=== PATIENT | female | born 2000 | race Caucasian/White ===

== ENCOUNTER 2020-08-20 07:53 | Outpatient (CLI) | payer BC, SELFPAY ==
--- NOTE | ~2020-08-20 | US_ITS ---
EXAMINATION: US pelvic complete w TV EXAM DATE: 08/20/2020 08:37 INDICATION: Low abdominal pain. Ovarian cyst. TECHNIQUE: Pelvic transabdominal and transvaginal sonogram was performed. There are multiple graysca le and Doppler images available for interpretation. There is no prior study for comparison. FINDINGS: Uterus measures 6.8 x 3.8 x 4.7 cm, and is morphologically normal. Endometrial stripe edel sures 8 mm, within normal limits. There is a nabothian cyst. There is no free pelvic fluid. Right adnexa: The ovary measures 2.9 x 2.3 x 1.8 cm and is morphologically normal. Ovarian vascular f low confirmed. Left adnexa: The ovary measures 3.1 x 2.1 x 2.5 cm and is morphologically normal. Ovarian vascular fl ow confirmed. IMPRESSION: 1. Unremarkable pelvic ultrasound exam. Reviewed, dictated and finalized at location A. PSYCHOTHERAPIST
== END 2020-08-20 07:54 | disposition home or self-care (01) ==
PROVIDERS: PCP Pediatrics; Visit Provider Pediatrics
DX: R10.2 Pelvic and perineal pain (principal)
CPT/HCPCS: 76830; 76856

== ENCOUNTER 2021-11-08 13:04 | Emergency (ER) | payer BC, SELFPAY ==
[2021-11-08 13:08] VITALS: BP 131/80; PULSE 83; RESP 16; TEMP 36.8; O2SAT 100
--- NOTE | 2021-11-08 13:26 | ED.HA ---
HPI - Headache General Chief Complaint: Headache Stated Complaint: migraine Time Seen by Provider: 11/08/21 13:15 Source: patient and RN notes reviewed History of Present Illness HPI Narrative: Patient is a 20-year-old female who presents the urgent care with complaints of a migraine to the left sikhism/forehead. Patient is also sensitive to light and sound and has been nauseated. Patient states the headache started yesterday and she has been using ibuprofen and Excedrin without much relief. Patient states that she typically does have Fioricet on hand but ran out last week. Patient denies of any vomiting. Denies of any recent head trauma, injury or fall. Denies any dizziness. No other acute complaints. No acute distress noted. Patient aware of the plan of care. Some parts of this dictation were generated by voice recognition software and may contain typographical and/or grammatical inaccuracies. Related Data Home Medications Medication Instructions Recorded Confirmed fluoxetine 40 mg PO BID 11/08/21 11/08/21 hydroxyzine HCl 10 mg PO TID PRN 11/08/21 11/08/21 omeprazole 40 mg PO DAILY 11/08/21 11/08/21 Allergies Allergy/AdvReac Type Severity Reaction Status Date / Time No Known Allergies Allergy Verified 11/08/21 13:26 Review of Systems Review of Systems: CONSTITUTIONAL: Denies fever, chills, or sweats. EYES: Denies visual changes, redness, or discharge. ENT: Denies rhinorrhea, congestion, sore throat, or otalgia. CARDIOVASCULAR: Denies chest pain, palpitations, or edema. RESPIRATORY: Denies cough or dyspnea. GASTROINTESTINAL: Denies abdominal pain, nausea, vomiting, or diarrhea. GENITOURINARY: Denies dysuria or hematuria. SKIN: Denies rash or itching. MUSCULOSKELETAL: Denies back pain, joint pain, or myalgia. NEUROLOGIC: Reports of a migraine headache All other systems reviewed are negative, except as documented in HPI. PMFSH Comments At the time of my signature, I reviewed and agree with the nursing past medical, surgical, social, and family history. There is no relevant family history pertinent to the patient complaint. Exam Narrative: GENERAL: This is a well-nourished, well-developed patient, in no apparent distress. HEAD: normocephalic, atraumatic. EYES: PERRL. Sclera clear/white. Vision is grossly intact. EARS: External ears normal NOSE: External nose normal with no obvious nasal discharge, nares without redness, no rhinorrhea. THROAT: Mucous membranes moist NECK: Neck supple, non-tender without lymphadenopathy CARDIOVASCULAR: Regular rate and rhythm without murmurs, gallops, or rubs. RESPIRATORY: Clear to auscultation. Breath sounds equal bilaterally. No wheezes, rales, or rhonchi. SKIN: warm, intact with no suspicious lesions or rash, good texture and turgor. NEURO: awake, alert, and oriented to person, place and time. There were no obvious focal neurologic abnormalities. EXTREMITIES: No clubbing, cyanosis, or edema. Course Course Level of Care: Express Care Visit Vital Signs Vital signs: Vital Signs Temperature 98.3 F 11/08/21 13:08 Pulse Rate 83 11/08/21 13:08 Respiratory Rate 16 11/08/21 13:08 Blood Pressure 131/80 11/08/21 13:08 Pulse Oximetry 100 11/08/21 13:08 Temperature 98.3 F 11/08/21 13:08 Pulse Rate 83 11/08/21 13:08 Respiratory Rate 16 11/08/21 13:08 Blood Pressure 131/80 11/08/21 13:08 Pulse Oximetry 100 11/08/21 13:08 Reviewed MDM - Headache MDM Narrative Medical decision making narrative: Advised the patient to use the Fioricet as directed. Continue your hydroxyzine and Tylenol/ibuprofen intermittently as needed. Do not take all the medications together. Increase your water intake and rest. Use the Zofran as needed for nausea. If you develop any increase with severe headache, lightheadedness, dizziness or profuse vomiting?go to the emergency room. Follow-up with your PCP within 2 to 5 days or for worsening symptoms or failure to improv
== END 2021-11-08 13:35 | disposition home or self-care (01) ==
PROVIDERS: Emergency Provider Nurse Practitioner Family
DX: G43.909 Migraine, unspecified, not intractable, without status migrainosus (principal); K21.9 Gastro-esophageal reflux disease without esophagitis; F41.9 Anxiety disorder, unspecified
CPT/HCPCS: 99213; G0463

== ENCOUNTER 2022-03-29 12:50 | Emergency (ER) | payer BC, SELFPAY ==
[2022-03-29 12:54] VITALS: BP 127/73; PULSE 95; RESP 20; TEMP 36.8; O2SAT 100
--- NOTE | 2022-03-29 13:27 | ED.GENADULT ---
HPI - General Adult General Chief complaint: Upper Respiratory Infection Stated complaint: nausea sore throat cough Source: patient Mode of arrival: ambulatory Limitations: no limitations History of Present Illness HPI narrative: Patient presents for evaluation of sick symptoms for the last 2 weeks. Symptoms include sinus congestion, nonproductive cough, shortness of breath, nausea, vomiting, diarrhea, sore throat, bilateral otalgia. No fever, chills, chest pain. No recent sick contacts to her knowledge. She took a home COVID test which was negative. She states she has had COVID 3 times in the past. She is not taking any medications to assist with her symptoms. No additional complaints or concerns. Related Data Home Medications Medication Instructions Recorded Confirmed fluoxetine 40 mg capsule 40 mg PO BID 11/08/21 03/29/22 omeprazole 40 mg capsule,delayed 40 mg PO DAILY 11/08/21 11/08/21 release albuterol sulfate 90 mcg/actuation 2 puff inhalation Q4-6H PRN 03/29/22 03/29/22 aerosol inhaler Shortness Of Breath Or Wheezing budesonide-formoterol HFA 80 1 inh inhalation DAILY 03/29/22 03/29/22 mcg-4.5 mcg/actuation aerosol inhaler (Symbicort) fluticasone propionate 50 1 ea intranasal DAILY 03/29/22 03/29/22 mcg/actuation nasal spray,suspension hydroxyzine HCl 25 mg tablet 1 tablet PO DAILY 03/29/22 03/29/22 sumatriptan succinate 25 mg tablet 1 tablet PO DAILY PRN Migraine 03/29/22 03/29/22 Headache topiramate 25 mg tablet 1 tablet PO BID 03/29/22 03/29/22 Allergies Allergy/AdvReac Type Severity Reaction Status Date / Time No Known Allergies Allergy Verified 03/29/22 13:22 Review of Systems Review of Systems: CONSTITUTIONAL: Denies fever, chills, or sweats. EYES: Denies visual changes, redness, or discharge. ENT: Reports sinus congestion, sore throat, bilateral ear pain. CARDIOVASCULAR: Denies chest pain, palpitations, or edema. RESPIRATORY: Reports cough and SOB GASTROINTESTINAL:Reports nausea, vomiting and diarrhea. Denies abdominal pain GENITOURINARY: Denies dysuria or hematuria. SKIN: Denies rash or itching. MUSCULOSKELETAL: Denies back pain, joint pain, or myalgia. NEUROLOGIC: Denies headache, numbness, dizziness, or weakness. PSYCHIATRIC: Denies anxiety or depression. 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 HEAD: Normocephalic, atraumatic. EYES: PERRLA and EOMI. ENT: Nares clear, no rhinorrhea or epistaxis. Mucous membranes moist. Oropharynx without tonsillar hypertrophy exudate or other lesions. Bilateral TMs pearly ko nonbulging NECK: Supple. No adenopathy or masses. No carotid bruits or JVD CHEST: Clear to auscultation. No respiratory distress. No wheezes rales or rhonchi HEART: Regular rate and rhythm. No murmur heard. Normal peripheral pulses. ABDOMEN: Soft, nontender, nondistended, normal active bowel sounds. EXTREMITIES: Normal range of motion. No edema. SKIN: Warm, dry, no rash. NEURO: No focal deficits. Alert and oriented x3. PSYCH: Normal mood and affect. Course Course Emergency Course: This is a 21-year-old female that presented with complaints of sick symptoms. She recently took a COVID test at home which was negative. Infl
== END 2022-03-29 13:35 | disposition home or self-care (01) ==
PROVIDERS: Emergency Provider Nurse Practitioner
DX: B34.9 Viral infection, unspecified (principal)
CPT/HCPCS: 87804; 99213; G0463

== ENCOUNTER 2022-04-05 13:10 | Emergency (ER) | payer BC, SELFPAY ==
[2022-04-05 13:16] VITALS: BP 157/138; PULSE 86; RESP 16; TEMP 36.2; O2SAT 100
[2022-04-05 13:35] VITALS: BP 129/74; PULSE 86; RESP 18; TEMP 36.4; O2SAT 100
--- NOTE | 2022-04-05 13:48 | ECG_ITS ---
Measurements Intervals Christopher Rate: 69 P: 40 PA: 129 QRS: 51 QRSD: 86 T: 23 QT: 403 QTc: 434 Interpretive Statements SINUS RHYTHM INCOMPLETE RIGHT BUNDLE BRANCH BLOCK BORDERLINE ST-T WAVE ABNORMALITY- ANT/INF LEADS BORDERLINE ECG Electronically Signed On 04-05-2022 18:21:36 CDT by Abdiel Duque D.O.
[2022-04-05 14:04] LABS: Basophils Absolute Auto 0.1 K/mm3 (0.0-0.1); Basophils Percent Auto 1.1 % (0.2-1.2); Eosinophils Absolute Auto 0.1 K/mm3 (0-0.3); Eosinophils Percent Auto 0.9 % (0-4.4); Hematocrit 32.8 % (37.0-47.0); Hemoglobin 9.8 g/dL (12.0-15.0); Immature Granulocyte Absolute 0.01 K/mm3 (0.00-0.031); Immature Granulocyte Percent A 0.2 % (0-0.5); Lymphocytes Absolute Auto 2.46 K/mm3 (0.9-3.2); Lymphocytes Percent Auto 38.2 % (18.3-44.2); Mean Corpuscular HGB Conc 29.9 g/dl (32-36); Mean Corpuscular Hemoglobin 21.7 pg (26-34); Mean Corpuscular Volume 72.7 fl (80-100); Mean Platelet Volume 9.9 fl (7.4-10.4); Monocytes Absolute Auto 0.4 K/mm3 (0.1-0.6); Monocytes Percent Auto 6.7 % (2.6-8.5); Neutrophils Absolute Auto 3.4 K/mm3 (1.3-6.7); Neutrophils Percent Auto 52.9 % (45.5-73.1); Platelet Count Result 316 k/mm3 (150-375); Red Blood Count 4.51 M/mm3 (4.2-5.4); White Blood Count 6.4 K/mm3 (4.5-10.0)
--- NOTE | 2022-04-05 14:16 | ED.SYNCOPE ---
HPI - Syncope General Chief Complaint: Syncope Stated Complaint: passed out Time Seen by Provider: 04/05/22 13:48 Source: patient History of Present Illness HPI narrative: Patient presents with syncope. Patient ports longstanding history of migraine dizziness both lightheadedness and vertigo as well as syncope. Reports has been having symptoms for years she has seen her primary care doctor as well as labs Seeing neurology she is currently being evaluated for seizures POTS and lupus. Reports today's events were similar to her priors. 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 For she has recently had a sinus infection and started her menses which thinks may be contributing exacerbation of her syncopal episodes. She denies any recent fevers, cough, chest pain, nausea, vomiting. She reports a mild headache consistent with her prior migraines Related Data Home Medications Medication Instructions Recorded Confirmed fluoxetine 40 mg capsule 40 mg PO BID 11/08/21 03/29/22 omeprazole 40 mg capsule,delayed 40 mg PO DAILY 11/08/21 03/29/22 release albuterol sulfate 90 mcg/actuation 2 puff inhalation Q4-6H PRN 03/29/22 03/29/22 aerosol inhaler Shortness Of Breath Or Wheezing budesonide-formoterol HFA 80 1 inh inhalation DAILY 03/29/22 03/29/22 mcg-4.5 mcg/actuation aerosol inhaler (Symbicort) fluticasone propionate 50 1 ea intranasal DAILY 03/29/22 03/29/22 mcg/actuation nasal spray,suspension hydroxyzine HCl 25 mg tablet 1 tablet PO DAILY 03/29/22 03/29/22 sumatriptan succinate 25 mg tablet 1 tablet PO DAILY PRN Migraine 03/29/22 03/29/22 Headache topiramate 25 mg tablet 1 tablet PO BID 03/29/22 03/29/22 Allergies Allergy/AdvReac Type Severity Reaction Status Date / Time No Known Allergies Allergy Verified 03/29/22 13:22 Review of Systems Review of Systems: CONSTITUTIONAL: Denies fever, chills, or sweats. EYES: Denies visual changes, redness, or discharge. ENT: Denies rhinorrhea, congestion, sore throat, or otalgia. CARDIOVASCULAR: Denies chest pain, palpitations, or edema. RESPIRATORY: Denies cough or dyspnea. GASTROINTESTINAL: Denies abdominal pain, nausea, vomiting, or diarrhea. GENITOURINARY: Denies dysuria or hematuria. SKIN: Denies rash or itching. MUSCULOSKELETAL: Denies back pain, joint pain, or myalgia. NEUROLOGIC: Denies headache, numbness, or weakness. PSYCHIATRIC: Denies anxiety or depression. 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 HEAD: Normocephalic, atraumatic. EYES: PERRLA and EOMI. ENT: Nares clear, no rhinorrhea or epistaxis. Mucous membranes moist. NECK: Supple. No masses. No JVD CHEST: Clear to auscultation. No respiratory distress. No wheezes rales or rhonchi HEART: Regular rate and rhythm. No murmur heard. Normal peripheral pulses. ABDOMEN: Soft, nontender, nondistended, normal active bowel sounds. EXTREMITIES: Normal range of motion. No edema. SKIN: Warm, dry, no rash. NEURO: No focal def
[2022-04-05 14:21] LABS: Alanine Aminotransferase 15 U/L (6-35); Alkaline Phosphatase 49 U/L (38-126); Anion Gap 7 mmol/L (8-16); Aspartate Amino Transferase 23 U/L (14-36); Bilirubin,Total 0.1 mg/dL (0.2-1.3); Blood Urea Nitrogen 16 mg/dL (7-17); Calcium 8.4 mg/dL (8.4-10.2); Carbon Dioxide 23 mmol/L (22-30); Chloride 108 mmol/L (98-107); Estimated CRCL calculation 105 ml/min; Estimated Glomerular Filt Rate > 60; Glucose 90 mg/dL (65-110); Potassium 3.8 mmol/L (3.4-5.0); Sodium 138 mmol/L (137-145)
[2022-04-05] MEDS: SODIUM CHLORIDE 0.9% IV 1,000 ML 999 ML IV CONT (14:29)
[2022-04-05] MEDS: KETOROLAC 15 MG/ML VIAL (*BKC) IV PUSH (14:29)
== END 2022-04-05 15:17 | disposition home or self-care (01) ==
PROVIDERS: Emergency Provider Emergency Medicine
DX: R55 Syncope and collapse (principal); I45.10 Unspecified right bundle-branch block; R94.31 Abnormal electrocardiogram [ECG] [EKG]
CPT/HCPCS: 36415; 80053; 85025; 93005; 96361; 96374; 99284; J1885; J7030

== ENCOUNTER 2022-05-17 11:32 | Emergency (ER) | payer BC, SELFPAY ==
[2022-05-17 11:36] VITALS: BP 133/88; PULSE 79; RESP 16; TEMP 36.1; O2SAT 100
[2022-05-17 11:49] VITALS: BP 131/68; PULSE 76; RESP 16; O2SAT 100
--- NOTE | 2022-05-17 12:06 | ED.HA ---
HPI - Headache General Chief Complaint: Headache <Arabella Bo PA-C - Last Filed: 05/17/22 18:21> Stated Complaint: Headache, aura, can't move left arm <Arabella Bo PA-C - Last Filed: 05/17/22 18:21> Time Seen by Provider: 05/17/22 11:42 <FRAN Mendosa Last Filed: 05/17/22 18:21> History of Present Illness HPI Narrative: Patient is a 21-year-old female with a history of migraine headaches that have been worked up in the past with images, MRI, here for evaluation of her typical migraine headache. 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 Notes right-sided pain, pulsatile in nature, associated with nausea, photophobia and phonophobia. No current visual changes, dizziness or lightheadedness, vomiting. Patient did not want to be evaluated in ED but she was told by her coworkers that she should come down to be evaluated because she felt weak on the left side. Patient notes this is a chronic symptom of her migraines. She is on daily topiramate for prophylaxis but notes that she has had daily headaches despite compliance. Has had MRI and CT scans of her brain that have been normal, but she has not yet gotten in to see a neurologist yet. Has appointment in Oct with neurologist at [place]. <Arabella Bo PA-C - Last Filed: 05/17/22 18:21> Related Data Home Medications: Home Medications Medication Instructions Recorded Confirmed fluoxetine 40 mg capsule 40 mg PO BID 11/08/21 03/29/22 omeprazole 40 mg capsule,delayed 40 mg PO DAILY 11/08/21 03/29/22 release albuterol sulfate 90 mcg/actuation 2 puff inhalation Q4-6H PRN 03/29/22 03/29/22 aerosol inhaler Shortness Of Breath Or Wheezing budesonide-formoterol HFA 80 1 inh inhalation DAILY 03/29/22 03/29/22 mcg-4.5 mcg/actuation aerosol inhaler (Symbicort) fluticasone propionate 50 1 ea intranasal DAILY 03/29/22 03/29/22 mcg/actuation nasal spray,suspension hydroxyzine HCl 25 mg tablet 1 tablet PO DAILY 03/29/22 03/29/22 sumatriptan succinate 25 mg tablet 1 tablet PO DAILY PRN Migraine 03/29/22 03/29/22 Headache topiramate 25 mg tablet 1 tablet PO BID 03/29/22 03/29/22 <Arabella Bo PA-C - Last Filed: 05/17/22 18:21> Allergies/Adverse Reactions: Allergies Allergy/AdvReac Type Severity Reaction Status Date / Time No Known Allergies Allergy Verified 05/17/22 11:43 <Arabella Bo PA-C - Last Filed: 05/17/22 18:21> Review of Systems Review of Systems: Gen: Denies fevers or chills Eyes: Denies eye pain or visual change ENT: Denies congestion Respiratory: Denies shortness of breath or cough CV: Denies chest pain or palpitations GI: Reports abdominal pain nausea, emesis or diarrhea denies burning, urgency, frequency or hematuria Musculoskeletal: Denies back pain or muscle pain Neuro: Reports migraine headache, left-sided weakness, numbness. Skin: Denies rash 10 point review of systems negative, other than as per history of present illness, past medical history and other positives and review of systems <Arabella Bo PA-C - Last Filed: 05/17/22 18:21> PENDING SALE TO [facility] Past Medical History Medical History: Medical History Migraines No pertinent past medical history <Arabella Bo PA-C - Last Filed: 05/17/22 18:21> Surgical History Surgical History: Surgical History No pertinent past surgical history <Arabella Bo PA-C - Last Filed: 05/17/22 18:21> Family History Family History: Family History Mother No pertinent past medical history <Arabella Bo PA-C - Last Filed: 05/17/22
[2022-05-17] MEDS: diphenhydrAMINE HCl INJ 50 MG/ML VIAL 12.5 MG IV PUSH (12:16)
[2022-05-17] MEDS: PROCHLORPERAZINE EDISYLATE 10 MG/2 ML VIAL IV PUSH (12:17)
[2022-05-17 12:23] VITALS: BP 129/70; PULSE 80; RESP 16; O2SAT 100
[2022-05-17] MEDS: SODIUM CHLORIDE 0.9% IV 1,000 ML 999 ML IV CONT (12:40)
[2022-05-17 13:50] VITALS: BP 127/72; PULSE 75; RESP 16; O2SAT 100
== END 2022-05-17 13:55 | disposition home or self-care (01) ==
PROVIDERS: Emergency Provider Preventive Medicine Aerospace Medicine
DX: G43.909 Migraine, unspecified, not intractable, without status migrainosus (principal)
CPT/HCPCS: 96361; 96374; 96375; 99284; J0780; J1200; J7030

== ENCOUNTER 2022-07-26 14:43 | Emergency (ER) | payer BC, SELFPAY ==
[2022-07-26] VITALS (8 sets, daily range): BP systolic 114–147; BP diastolic 51–82; PULSE 85–113; RESP 10–23; TEMP 36.9; O2SAT 100
--- NOTE | 2022-07-26 14:48 | ED_ITS ---
HPI - General Adult General Chief complaint: Seizure Stated complaint: syncope Time Seen by Provider: 07/26/22 14:48 Related Data Home Medications Medication Instructions Recorded Confirmed fluoxetine 40 mg capsule 40 mg PO BID 11/08/21 03/29/22 omeprazole 40 mg capsule,delayed 40 mg PO DAILY 11/08/21 03/29/22 release albuterol sulfate 90 mcg/actuation 2 puff inhalation Q4-6H PRN 03/29/22 03/29/22 aerosol inhaler Shortness Of Breath Or Wheezing budesonide-formoterol HFA 80 1 inh inhalation DAILY 03/29/22 03/29/22 mcg-4.5 mcg/actuation aerosol inhaler (Symbicort) fluticasone propionate 50 1 ea intranasal DAILY 03/29/22 03/29/22 mcg/actuation nasal spray,suspension hydroxyzine HCl 25 mg tablet 1 tablet PO DAILY 03/29/22 03/29/22 sumatriptan succinate 25 mg tablet 1 tablet PO DAILY PRN Migraine 03/29/22 03/29/22 Headache topiramate 25 mg tablet 1 tablet PO BID 03/29/22 03/29/22 Allergies Allergy/AdvReac Type Severity Reaction Status Date / Time No Known Allergies Allergy Verified 05/17/22 11:43 [facility] Past Medical History Medical History Migraines No pertinent past medical history Surgical History Surgical History No pertinent past surgical history Family History Family History Mother No pertinent past medical history Social History Social History Smoking status: Never smoker Substance use: never 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 Gender identity (if verbalized by the patient): Female Spiritual care concerns: No Discharge Plan Discharge Prescriptions: No Action albuterol sulfate 90 mcg/actuation HFA aerosol inhaler 2 puff INHALATION Q4-6H PRN (Reason: Shortness Of Breath Or Wheezing) fluticasone propionate 50 mcg/actuation spray,suspension 1 ea INTRANASAL DAILY hydroxyzine HCl 25 mg tablet 1 tablet PO DAILY dextromethorphan-guaifenesin [Mucinex DM] 60-1,200 mg tablet extended release 12 hr 1 tablet PO Q12H Qty: 20 0RF ondansetron 4 mg tablet,disintegrating 4 mg PO Q8H PRN (Reason: nausea and vomiting) Qty: 15 0RF sumatriptan succinate 25 mg tablet 1 tablet PO DAILY PRN (Reason: Migraine Headache) topiramate 25 mg tablet 1 tablet PO BID budesonide-formoterol [Symbicort] 80-4.5 mcg/actuation HFA aerosol inhaler 1 inh INHALATION DAILY omeprazole 40 mg capsule,delayed release(DR/EC) 40 mg PO DAILY fluoxetine 40 mg capsule 40 mg PO BID Follow-up/Referrals: PHYSICIAN NOT ON STAFF,NONSTAFF [Primary Care Provider] -
--- NOTE | 2022-07-26 17:25 | ED.SEIZURE ---
HPI - Seizure General Chief Complaint: Seizure Stated Complaint: syncope Time Seen by Provider: 07/26/22 14:48 History of Present Illness HPI Narrative: 21yoF h/o sz p/w sz earlier today; she has staring spells has already had an EEG, is on max dose of topamax for these episodes. States she is somewhat tired now and has also recently had some tingling/pain in her R arm but otherwise feels well now w/o any focal neuro symptoms. Related Data Home Medications Medication Instructions Recorded Confirmed fluoxetine 40 mg capsule 40 mg PO BID 11/08/21 03/29/22 omeprazole 40 mg capsule,delayed 40 mg PO DAILY 11/08/21 03/29/22 release albuterol sulfate 90 mcg/actuation 2 puff inhalation Q4-6H PRN 03/29/22 03/29/22 aerosol inhaler Shortness Of Breath Or Wheezing budesonide-formoterol HFA 80 1 inh inhalation DAILY 03/29/22 03/29/22 mcg-4.5 mcg/actuation aerosol inhaler (Symbicort) fluticasone propionate 50 1 ea intranasal DAILY 03/29/22 03/29/22 mcg/actuation nasal spray,suspension hydroxyzine HCl 25 mg tablet 1 tablet PO DAILY 03/29/22 03/29/22 sumatriptan succinate 25 mg tablet 1 tablet PO DAILY PRN Migraine 03/29/22 03/29/22 Headache topiramate 25 mg tablet 1 tablet PO BID 03/29/22 03/29/22 Allergies Allergy/AdvReac Type Severity Reaction Status Date / Time No Known Allergies Allergy Verified 05/17/22 11:43 Review of Systems Review of Systems: CONST: No fever. HEENT: No sore throat C/V: No chest pain RESP: No cough GI: No nausea/vomiting : No dysuria. M/S: No joint pain. SKIN: No rash. 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 EYES: EOMI, conjunctiva normal ENT: Hearing grossly intact LUNGS: Nonlabored breathing. HEART: [Regular rate and rhythm] ABD: [Soft], [nontender to palpation] EXT: Normal range of motion; re-elicitation of symptoms when olecranon pressed SKIN: [No rashes or lesions.] NEURO: [Alert and oriented x 3. No gross focal sensory or strength deficits.] PSYCH: Normal affect Course Vital Signs Vital signs: Vital Signs Temperature 98.5 F 07/26/22 14:47 Pulse Rate 94 07/26/22 14:47 Respiratory Rate 16 07/26/22 14:47 Blood Pressure 136/76 07/26/22 14:47 Pulse Oximetry 100 07/26/22 14:47 Temperature 98.5 F 07/26/22 14:47 Pulse Rate 88 07/26/22 15:31 Respiratory Rate 15 07/26/22 15:31 Blood Pressure 117/66 07/26/22 15:31 Pulse Oximetry 100 07/26/22 15:31 MDM - Seizure MDM Narrative Medical decision making narrative: 21-year-old female presenting with seizure that presents like her usual episodes, she is well-appearing now with no new focal neurodeficits, she does have symptoms consistent with ulnar neuropathy. Case discussed with neurologist, did not advise adding any new prescriptions at this time, she is given return precautions and she already has a neurologist she will be following up with on Thursday. Discharge Plan Discharge Clinical Impression: Neuropathy, ulnar nerve, Absence s
== END 2022-07-26 15:42 | disposition home or self-care (01) ==
PROVIDERS: Emergency Provider Emergency Medicine
DX: G40.A09 Absence epileptic syndrome, not intractable, without status epilepticus (principal); G56.21 Lesion of ulnar nerve, right upper limb
CPT/HCPCS: 99283

== ENCOUNTER 2023-02-21 12:33 | Emergency (ER) | payer OTHER, MEDICAID, SELFPAY ==
--- NOTE | ~2023-02-21 | XR_ITS ---
EXAMINATION: XR hand LT min 3V INDICATION: Left hand pain TECHNIQUE: Three views of the left hand are obtained. COMPARISON: None available FINDINGS: No fracture, dislocation, or subluxation. The bones, soft tissues, and joint spaces are nor mal. IMPRESSION: 1. No acute osseous abnormality. Reviewed, dictated and finalized at location A.
[2023-02-21 12:38] VITALS: BP 127/71; PULSE 83; RESP 20; TEMP 36.4; O2SAT 100
--- NOTE | 2023-02-21 12:54 | ED.UPPEXIN ---
HPI - Extremity Injury (Upper) General Chief Complaint: Extremity Injury, Upper Stated Complaint: left hand middle finger injury History of Present Illness HPI narrative: PATIENT PRESENTS WITH LEFT FINGER AND HAND INJURY. PATIENT STATES SHE SLAMMED HER FINGER IN THE DOOR AT WORK. iNCIDENT OCCURRED 3 DAYS AGO AT WORK. PATIENT HAS BEEN WEARING A METAL SPLINT AND PRESENTS FOR AN XRAY OF HAND TO RULE OUT FRACTURE. PATIENT HAS BEEN PLACED IN A METAL SPLINT BY WORKPLACE FOR COMFORT. NO OPEN AREAS NOTED NO DEFORMITY NOTED SLIGHT SWELLING AND BRUISING. Related Data Home Medications Medication Instructions Recorded Confirmed fluoxetine 40 mg capsule 40 mg PO BID 11/08/21 03/29/22 omeprazole 40 mg capsule,delayed 40 mg PO DAILY 11/08/21 03/29/22 release albuterol sulfate 90 mcg/actuation 2 puff inhalation Q4-6H PRN 03/29/22 03/29/22 aerosol inhaler Shortness Of Breath Or Wheezing budesonide-formoterol HFA 80 1 inh inhalation DAILY 03/29/22 03/29/22 mcg-4.5 mcg/actuation aerosol inhaler (Symbicort) fluticasone propionate 50 1 ea intranasal DAILY 03/29/22 03/29/22 mcg/actuation nasal spray,suspension hydroxyzine HCl 25 mg tablet 1 tablet PO DAILY 03/29/22 03/29/22 sumatriptan succinate 25 mg tablet 1 tablet PO DAILY PRN Migraine 03/29/22 03/29/22 Headache topiramate 25 mg tablet 1 tablet PO BID 03/29/22 03/29/22 ferrous sulfate 325 mg (65 mg mg 02/21/23 iron) tablet (FeroSul) levetiracetam 500 mg tablet mg PO 02/21/23 Allergies Allergy/AdvReac Type Severity Reaction Status Date / Time No Known Allergies Allergy Verified 05/17/22 11:43 Review of Systems Review of Systems: CONSTITUTIONAL: DENIES FEVER, CHILLS, OR SWEATS. EYES: DENIES VISUAL CHANGES, REDNESS, OR DISCHARGE. ENT: DENIES RHINORRHEA, CONGESTION, SORE THROAT, OR OTALGIA. CARDIOVASCULAR: DENIES CHEST PAIN, PALPITATIONS, OR EDEMA. RESPIRATORY: DENIES COUGH OR DYSPNEA. GASTROINTESTINAL: DENIES ABDOMINAL PAIN, NAUSEA, VOMITING, OR DIARRHEA. GENITOURINARY: DENIES DYSURIA OR HEMATURIA. SKIN: DENIES RASH OR ITCHING. MUSCULOSKELETAL: DENIES BACK PAIN, JOINT PAIN, OR MYALGIA. NEUROLOGIC: DENIES HEADACHE, NUMBNESS, OR WEAKNESS. PSYCHIATRIC: DENIES ANXIETY OR DEPRESSION. 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 THERE IS NO RELEVANT FAMILY HISTORY PERTINENT TO THE PRESENTING COMPLAINT Exam Narrative: GENERAL: WELL-APPEARING, WELL-NOURISHED, AND IN NO ACUTE DISTRESS. HEAD: NORMOCEPHALIC, ATRAUMATIC. EYES: PERRLA AND EOMI. ENT: NARES CLEAR, NO RHINORRHEA OR EPISTAXIS. MUCOUS MEMBRANES MOIST. NECK: SUPPLE. CHEST: CLEAR TO AUSCULTATION. NO RESPIRATORY DISTRESS. HEART: REGULAR RATE AND RHYTHM. NO MURMUR HEARD. NORMAL PERIPHERAL PULSES. ABDOMEN: SOFT, NONTENDER, NONDISTENDED, NORMAL ACTIVE BOWEL SOUNDS. EXTREMITIES: NORMAL RANGE OF MOTION. NO EDEMA. HAND EXAM - SKIN INTACT, NO LACERATION, NO SWELLING, NO ERYTHEMA, NORMAL DIGIT CASCADE WITH FLEXION OF FINGERS, MEDIAN NERVE, ULNAR NERVE, RADIAL NERVE IS INTACT. NORMAL SENSATION OF EACH SIDE OF EACH FINGER, CAN PERFORM `OK? SIGN, `CROSS OVER FINGER TEST OF INDEX AND MIDDLE FINGERS? AND `THUMBS UP? SIGN, NORMAL THUMB OPPOSITION, NO SCISSORING. GOOD CAPILLARY REFI
== END 2023-02-21 13:28 | disposition home or self-care (01) ==
PROVIDERS: Emergency Provider Nurse Practitioner Family
DX: S63.613A Unspecified sprain of left middle finger, initial encounter (principal); X58.XXXA Exposure to other specified factors, initial encounter; Y99.0 Civilian activity done for income or pay
CPT/HCPCS: 73130; 99213; G0463

== ENCOUNTER 2024-08-15 16:18 | Emergency (ER) | payer OTHER, MEDICAID, SELFPAY ==
--- NOTE | ~2024-08-15 | XR_ITS ---
EXAMINATION: XR chest 2V DATE: 08/15/2024 17:00 INDICATION: Cough. TECHNIQUE: Frontal and lateral views of the chest were obtained. COMPARISON: None. FINDINGS: There is no pneumonia, pleural effusion, or pneumothorax. The heart size is normal. IMPRESSION: 1. No acute cardiopulmonary disease. Reviewed, dictated and finalized at location A. ER OPERATOR
[2024-08-15 16:22] VITALS: BP 122/75; PULSE 98; RESP 16; TEMP 36.8; O2SAT 100
--- NOTE | 2024-08-15 16:29 | ED_ITS ---
HPI - General Adult General Chief complaint: Upper Respiratory Infection Stated complaint: congestion/cough/heavy menstral Source: patient Mode of arrival: ambulatory Limitations: no limitations History of Present Illness HPI narrative: 23-year-old female with hx asthma presented for complaint of cough and chest congestion worsening over the past 5 days. She states she felt better yesterday but woke this morning with hoarse voice. Endorses shortness of breath with exertion and subjective fevers and chills. She denies nausea, vomiting, diarrhea. Taking Mucinex for symptoms. Patient also reports LMP was 2 weeks ago, however this morning she endorses a large gush of blood, but has not had any menstrual cramping. She does report associated right upper and lower abdominal cramping. Uses condoms for prevention. Related Data Home Medications Medication Instructions Recorded Confirmed fluoxetine 40 mg capsule 40 mg PO BID 11/08/21 08/15/24 omeprazole 40 mg capsule,delayed 40 mg PO DAILY 11/08/21 03/29/22 release albuterol sulfate 90 mcg/actuation 2 puff inhalation Q4-6H PRN 03/29/22 08/15/24 aerosol inhaler Shortness Of Breath Or Wheezing budesonide-formoterol HFA 80 1 inh inhalation DAILY 03/29/22 08/15/24 mcg-4.5 mcg/actuation aerosol inhaler (Symbicort) fluticasone propionate 50 1 ea intranasal DAILY 03/29/22 03/29/22 mcg/actuation nasal spray,suspension hydroxyzine HCl 25 mg tablet 1 tablet PO DAILY 03/29/22 03/29/22 sumatriptan succinate 25 mg tablet 1 tablet PO DAILY PRN Migraine 03/29/22 03/29/22 Headache topiramate 25 mg tablet 1 tablet PO BID 03/29/22 03/29/22 ferrous sulfate 325 mg (65 mg mg 02/21/23 iron) tablet (FeroSul) levetiracetam 500 mg tablet mg PO 02/21/23 famotidine 20 mg tablet 20 mg PO BID 08/15/24 08/15/24 famotidine 20 mg tablet mg 08/15/24 Allergies Allergy/AdvReac Type Severity Reaction Status Date / Time No Known Allergies Allergy Verified 05/17/22 11:43 Review of Systems Review of Systems: ROS per HPI All systems reviewed & are unremarkable except as noted in HPI and below PMFSH Past Medical History Medical History Absence seizure Migraines No pertinent past medical history Surgical History Surgical History No pertinent past surgical history Family History Family History Mother No pertinent past medical history Social History Social History Smoking status: Never smoker Substance use: never 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 Please see nursing chart for further information. There is no relevant family history pertinent to the presenting complaint Exam Narrative: GENERAL: Well-appearing, in no acute distress. EYES: EOMI. No redness or drainage. Conjunctivae normal. ENT: Mucous membranes pink and moist. No rhinorrhea. TMs normal bilaterally. Throat normal. Uvula midline. NECK: Normal AROM. Supple. CHEST: No respiratory distress. Lungs clear to all alonso. HEART: Regular rate and rhythm. No murmur appreciated. ABDOMEN: Soft, nondistended, normal active bowel sounds. Tender to RLQ and RUQ. No guarding. EXTREMITIES: Normal range of motion. No edema. SKIN: Warm, dry, no rash. Capillary refill normal. Normal skin turgor. NEURO: Alert and oriented x3. Gait steady. PSYCH: Normal affect. Course Course Emergency Course: Patient is aware of diagnosis, understands and agrees to treatment plan. Anticipatory guidance given. Patient agrees to follow-up as directed and is aware of reasons to seek care at the emergency department. Portions of this record may have been created with voice recognition software Level of Care: Express Care Visit Vital Signs Vital signs: Vital Signs Temperature 98.3 F 08/15/24 16:22 Pulse Rate 98 08/15/24 16:22 Respiratory Rate 16 08/15/24 16:22 Blood Pressure 122/75 08/15/24 16:22 Pulse Oximetry 100 08/15/24 16:22 Oxygen Delivery Room Air 08/15/24 16:22 Temperature 98.3 F 08/15/24 16:22 Pulse Rate 98 08/15/24 16:22 Respiratory Rate 16 08/15/24 16:22 Blood Pressure 122/75 08/15/24 16:22 Pulse Oximetry 100 08/15/24 16:22 Oxygen Delivery Room Air 08/15/24 16:22 Medical Decision Making MDM Narrative Medical decision making narrative: Pt stated the right sided abdominal discomfort is actually a long-standing issue which she is discussing with her pcp, says she has had a HIDA scan. Advised to f/u with obgyn Discussed physical exam findings and CXR, neg strep. Advised supportive measures and signs/symptoms to go to the ER. Pt is appropriate for outpt treatment and f/u. Differential Diagnosis Differential Diagnosis: influenza, covid, sinusitis, OM, strep pharyngitis, URI Vital Signs Vital Signs: Vital Signs Temperature 98.3 F 08/15/24 16:22 Pulse Rate 98 08/15/24 16:22 Respiratory Rate 16 08/15/24 16:22 Blood Pressure 122/75 08/15/24 16:22 Pulse Oximetry 100 08/15/24 16:22 Oxygen Delivery Room Air 08/15/24 16:22 Temperature 98.3 F 08/15/24 16:22 Pulse Rate 98 08/15/24 16:22 Respiratory Rate 16 08/15/24 16:22 Blood Pressure 122/75 08/15/24 16:22 Pulse Oximetry 100 08/15/24 16:22 Oxygen Delivery Room Air 08/15/24 16:22 Lab Data Labs: Lab Results 08/15/24 08/15/24 Range/Units 16:28 16:48 POC Urine HCG, Qual Negative (Negative) POC Grp A Strep Screen Negative (Negative) Imaging Data Radiologist's impression: Patient: Leticia Cochran : 2000 MR#: [id number] Age: 23 Acct:[id number] Loc: [facility] ADM Date: 08/15/24Attending Dr: Ordering Physician: Lesley Haney APRN Date of Service: 08/15/24 Procedure(s): XR chest 2V Accession Number(s): [id number] cc: Kage, Lesley M. AIR POLLUTION SPECIALIST~ EXAMINATION: XR chest 2V DATE: 08/15/2024 17:00 INDICATION: Cough. TECHNIQUE: Frontal and lateral views of the chest were obtained. COMPARISON: None. FINDINGS: There is no pneumonia, pleural effusion, or pneumothorax. The heart size is normal. IMPRESSION: 1. No acute cardiopulmonary disease. Discharge Plan Discharge Clinical Impression: Bronchitis Patient Disposition: Home, Self-Care Condition: Stable Instructions: Antibiotic Form, Acute Bronchitis (ED) Additional Instructions: Acute bronchitis can be contagious because it is usually caused by infection with a virus or bacteria. It is usually for a few days but you can be contagious for up to one week. Take medication as directed over the counter Cough syrup may cause drowsiness; avoid driving or take it at night time. Tylenol 1000mg every 8 hours as needed for pain Symptomatic treatment includes: rest, fluids, and increase humidity of the air at home. Recommend Flonase spray and Zyrtec (or Claritin/Tamica) Follow up with your primary care provider in 1 week Go to the ER for worsening symptoms or concerns Prescriptions: New methylprednisolone [Medrol (Liu)] 4 mg tablets,dose pack See Rx Instructions .ROUTE .COMPLEX Qty: 21 0RF Rx Instructions: orally per package directions albuterol sulfate 90 mcg/actuation HFA aerosol inhaler 2 inh inhalation QID PRN (Reason: shortness of breath or wheezing) Qty: 8.5 0RF No Action albuterol sulfate 90 mcg/actuation HFA aerosol inhaler 2 puff INHALATION Q4-6H PRN (Reason: Shortness Of Breath Or Wheezing) fluticasone propionate 50 mcg/actuation spray,suspension 1 ea INTRANASAL DAILY hydroxyzine HCl 25 mg tablet 1 tablet PO DAILY dextromethorphan-guaifenesin [Mucinex DM] 60-1,200 mg tablet extended release 12 hr 1 tablet PO Q12H Qty: 20 0RF ondansetron 4 mg tablet,disintegrating 4 mg PO Q8H PRN (Reason: nausea and vomiting) Qty: 15 0RF sumatriptan succinate 25 mg tablet 1 tablet PO DAILY PRN (Reason: Migraine Headache) topiramate 25 mg tablet 1 tablet PO BID budesonide-formoterol [Symbicort] 80-4.5 mcg/actuation HFA aerosol inhaler 1 inh INHALATION DAILY levetiracetam 500 mg tablet PO ferrous sulfate [FeroSul] 325 mg (65 mg iron) tablet famotidine 20 mg tablet famotidine 20 mg tablet 20 mg PO BID omeprazole 40 mg capsule,delayed release(DR/EC) 40 mg PO DAILY fluoxetine 40 mg capsule 40 mg PO BID Follow-up/Referrals: PHYSICIAN NOT ON STAFF,NONSTAFF [Primary Care Provider] - Stand Alone Forms: Work/School Release IP Time of Disposition: 17:16
[2024-08-15 16:48] LABS: EDSTREPNEGPOS1 Negative (Negative)
[2024-08-15 16:53] LABS: BEDSIDEPREGUCG Negative (Negative)
== END 2024-08-15 17:23 | disposition home or self-care (01) ==
PROVIDERS: Emergency Provider Nurse Practitioner Family
DX: J40 Bronchitis, not specified as acute or chronic (principal); J45.909 Unspecified asthma, uncomplicated
CPT/HCPCS: 71046; 81025; 87081; 87880; 99213; G0463

== ENCOUNTER 2025-06-16 09:32 | Emergency (ER) | payer OTHER, MEDICAID, SELFPAY ==
[2025-06-16 09:38] VITALS: BP 146/92; PULSE 106; RESP 18; TEMP 36.3; O2SAT 100
--- NOTE | 2025-06-16 09:53 | ED.URI ---
HPI - URI/Sore Throat General Chief Complaint: Upper Respiratory Infection Stated Complaint: wants covid/ flu test/fever Time Seen by Provider: 06/16/25 09:53 Source: patient and RN notes reviewed Mode of arrival: ambulatory Limitations: no limitations History of Present Illness HPI Narrative: 24-year-old female presented for complaint of nasal congestion and drainage, cough, sore throat and fever. Reports temp up to 101 this morning. Said she had to leave school. Denies shortness of breath, wheezing nausea vomiting diarrhea or lethargy. Denies known sick contacts. Taking Mucinex D. elicited complaint: cough Related Data Home Medications ?Medication ?Instructions ?Recorded ?Confirmed ?Last Taken ?Type fluoxetine 40 mg capsule 40 mg PO BID 11/08/21 08/15/24 Unknown History omeprazole 40 mg capsule,delayed 40 mg PO DAILY 11/08/21 03/29/22 Unknown History release albuterol sulfate 90 mcg/actuation 2 puff inhalation Q4-6H PRN 03/29/22 08/15/24 Unknown History aerosol inhaler Shortness Of Breath Or Wheezing budesonide-formoterol HFA 80 1 inh inhalation DAILY 03/29/22 08/15/24 Unknown History mcg-4.5 mcg/actuation aerosol inhaler (Symbicort) fluticasone propionate 50 1 ea intranasal DAILY 03/29/22 03/29/22 Unknown History mcg/actuation nasal spray,suspension hydroxyzine HCl 25 mg tablet 1 tablet PO DAILY 03/29/22 03/29/22 Unknown History topiramate 25 mg tablet 1 tablet PO BID 03/29/22 03/29/22 Unknown History levetiracetam 500 mg tablet mg PO 02/21/23 Unknown History famotidine 20 mg tablet 20 mg PO BID 08/15/24 08/15/24 Unknown History famotidine 20 mg tablet mg 08/15/24 Unknown History buspirone 7.5 mg tablet mg 06/16/25 Unknown History dicyclomine 20 mg tablet mg 06/16/25 Unknown History folic acid 1 mg tablet 06/16/25 Unknown History levetiracetam 750 mg tablet mg PO 06/16/25 Unknown History sodium chloride 1,000 mg soluble mg 06/16/25 Unknown History tablet Allergies Allergy/AdvReac Type Severity Reaction Status Date / Time No Known Allergies Allergy Verified 06/16/25 10:00 Review of Systems Review of Systems: CONSTITUTIONAL: Endorses malaise, body aches, chills, sweats, fever EYES: Denies visual changes, redness, or discharge ENT: Reports rhinorrhea, congestion otalgia, sore throat CARDIOVASCULAR: Denies chest pain, palpitations, edema RESPIRATORY: Reports cough, post nasal drainage. 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 TM pearly ko with dull light reflex bilaterally; no tragal tenderness. Oropharynx not erythematous without lesions or exudate, no drooling, no hoarseness, no trismus, uvula midline. No tripod positioning, muffled voice, soft palate or pharyngeal wall bulging NECK: Supple. No lymphadenopathy CHEST: Clear to auscultation, breath sounds equal. No wheezing, rhonchi, rales, or stridor. No respiratory distress, speaks in full sentences. HEART: Regular rate and rhythm. No murmur heard. SKIN: Warm, dry, no rash. NEURO: Alert and oriented x3. PSYCH: Normal mood and affect Course Course Emergency Course: Patient is aware of diagnosis, understands and agrees to treatment plan. Anticipatory guidance given. Patient agrees to follow-up as directed and is aware of reasons to seek care at the emergency department. Portions of this record may have been created with voice recognition software Level of Care: Express Care Visit Vital Signs Vital signs: Vital Signs Temperature 97.4 F L 06/16/25 09:38 Pulse Rate 106 H 06/16/25 09:38 Respiratory Rate 18 06/16/25 09:38 Blood Pressure 146/92 H 06/16/25 09:38 Pulse Oximetry 100 06/16/25 09:38 Oxygen Delivery Room Air 06/16/25 09:38 Temperature 97.4 F L 06/16/25 09:38 Pulse Rate 106 H 06/16/25 09:38 Respiratory Rate 18 06/16/25 09:38 Blood Pressure 146/92 H 06/16/25 09:38 Pulse Oximetry 100 06/16/25 09:38 Oxygen Delivery Room Air 06/16/25 09:38 reviewed MDM - URI/Sore Throat MDM Narrative Medical decision making narrative: Discussed physical exam findings, negative flu, COVID, strep.. Advised supportive measures and signs/symptoms to go to the ER. Pt is appropriate for outpt treatment and f/u. Differential Diagnosis Differential diagnosis: Likely upper respiratory infection, sinusitis and viral infection Lab Data Labs: Lab Results 06/16/25 Range/Units 10:18 POC Influenza A Ag Negative (Negative) POC Influenza B Ag Negative (Negative) POC SARS CoV-2 Ag Negative (Negative) POC Grp A Strep Screen Negative (Negative) Discharge Plan Discharge Clinical Impression: Viral infection Patient Disposition: Home Condition: Stable Instructions: Antibiotic Form, Upper Respiratory Infection (ED) Additional Instructions: Flu COVID negative. Rapid strep swab was negative today You will be notified in a few days if the culture comes back positive for strep, and appropriate antibiotics will be called in at that time. if symptoms are due to a viral illness, it is not treated with antibiotics. Viral symptoms can be present for up to 10-14 days. Recommendations: Flonase spray and Zyrtec for sinus congestion Cough syrup may cause drowsiness; avoid driving or take it at night time. Tylenol every 8 hours as needed for pain/fever Soft foods, cool liquids, warm tea. Gargle with warm saltwater twice a day. Chloraseptic spray and throat lozenges. Rest and stay hydrated. --Follow up with your PCP --Go to the ER immediately if you cannot swallow your saliva, trouble breathing/wheezing, throat swelling, pain is persistent and severe Patient Language: Luxembourgish Prescriptions: No Action albuterol sulfate 90 mcg/actuation HFA aerosol inhaler 2 puff INHALATION Q4-6H PRN (Reason: Shortness Of Breath Or Wheezing) fluticasone propionate 50 mcg/actuation spray,suspension 1 ea INTRANASAL DAILY hydroxyzine HCl 25 mg tablet 1 tablet PO DAILY dextromethorphan-guaifenesin [Mucinex DM] 60-1,200 mg tablet extended release 12 hr 1 tablet PO Q12H Qty: 20 0RF topiramate 25 mg tablet 1 tablet PO BID budesonide-formoterol [Symbicort] 80-4.5 mcg/actuation HFA aerosol inhaler 1 inh INHALATION DAILY levetiracetam 500 mg tablet PO famotidine 20 mg tablet famotidine 20 mg tablet 20 mg PO BID albuterol sulfate 90 mcg/actuation HFA aerosol inhaler 2 inh inhalation QID PRN (Reason: shortness of breath or wheezing) Qty: 8.5 0RF omeprazole 40 mg capsule,delayed release(DR/EC) 40 mg PO DAILY fluoxetine 40 mg capsule 40 mg PO BID dicyclomine 20 mg tablet buspirone 7.5 mg tablet folic acid 1 mg tablet levetiracetam 750 mg tablet PO sodium chloride 1,000 mg tablet,soluble Follow-up/Referrals: PHYSICIAN NOT ON STAFF,NONSTAFF [Primary Care Provider] Time of Disposition: 10:29
--- OUTSIDE RECORDS SUMMARY | 2025-06-16 10:03 | XMS_ITS | Clinical Summary ---
Author Organization [facility] Address [address] [place] [address] Care Team Providers Care Supervisor Lathing Name Role Phone Daily Grant MD Primary Care Provider + Allergies No known active allergies Medications omeprazole (PriLOSEC) 20 mg capsuleIndications: Treatment of Non-Bleeding Gastric Disorder 4 capsules (80 mg total) 0 Active hydrOXYzine (ATARAX) 25 mg tablet 2 Active ondansetron ODT (ZOFRAN-ODT) 4 mg disintegrating tablet DISSOLVE 1 TABLET ON THE TONGUE EVERY 8 HOURS NEEDED FOR NAUSEA OR VOMITING 2 Active topiramate (TOPAMAX) 200 mg tablet Take 1 tablet (200 mg total) by mouth 2 (two) times a day Active ondansetron ODT (ZOFRAN-ODT) 4 mg disintegrating tablet Take 1 tablet (4 mg total) by mouth every 8 (eight) hours as needed for nausea or vomiting 20 tablet 3 Active busPIRone (BUSPAR) 7.5 mg tabletIndications:G eneralized Anxiety Disorder Take 1 tablet (7.5 mg total) by mouth 3 (three) times a day Twice a day Active famotidine (PEPCID) 20 mg tablet Take 1 tablet (20 mg total) by mouth 2 (two) times a day Twice a day Active levETIRAcetam (KEPPRA) 750 mg tablet Take 1 tablet (750 mg total) by mouth 2 (two) times a day 60 tablet 11 5 11/15/19 Active escitalopram (LEXAPRO) 5 mg tablet Take 1 tablet (5 mg total) by mouth daily Active Active Problems Problem Noted Date Diagnosed Date Obesity 07/02/2024 Vitamin D deficiency 01/28/2023 Chronic diarrhea 01/01/2023 Overview (05/12/2025): Added automatically from request for surgery [id number] Pharyngoesophageal dysphagia 01/01/2023 Overview (05/12/2025): Added automatically from request for surgery [id number] Iron deficiency anemia 07/28/2022 Overview (05/12/2025): Added automatically from request for surgery [id number] Seizure 05/29/2022 Moderate asthma 05/29/2022 Migraine with aura 04/08/2022 Migraine without status migrainosus, not intract able 05/31/2020 Moderate persistent asthma without complication 05/31/2020 Gastroesophageal reflux disease 05/31/2020 Overview (05/12/2025): Added automatically from request for surgery [id number] Atypical syncope 04/04/2020 Gastroesophageal reflux disease without esophagi tis 04/04/2020 GEGE (generalized anxiety disorder) 04/04/2020 Menorrhagia with irregular cycle 04/12/2019 BMI (body mass index), pedia tric, 85% to less than 95% for age 0704/27/2012 Resolved Problems Problem Noted Date Diagnosed Date Resolved Date Generalized abdominal pain 01/01/2023 0 05/12/2025 Overview (05/12/2025): Added automatically from request for surgery [id number] Encounters Date Type Department Care Team Description 05/18/2025 10:50 AM CDT [facility] [address] [facility] [address] [place] [address] Mala Trejo NP Pelvic and perineal pain (Primary Dx); Painful menstrual periods; Menorrhagia with regular cycle 05/18/2025 9:45 AM CDT Ancillary Procedure [facility] [address] [facility] [address] [place] [phone] Pelvic and perineal pain 05/12/2025 11:10 AM CDT [facility] Visit [facility] [address] [place] [phone] Mala Trejo NP Pelvic and perineal pain (Primary Dx); Painful menstrual periods; Menorrhagia with regular cycle from Last 3 Months Surgical History Surgery Date Site/Laterality Comments TONSILLECTOMY 10/05/2003 - 10/04/2004 Bilateral FLEXIBLE BRONCHOSCOPY W/ UPP ER ENDOSCOPY 04/04/2023 - 05/04/2023 Medical History Medical History Date Comments Asthma Anxiety Depression Hemiplegic migraine GERD without esophagitis Asthma Iron deficiency Seizures (HCC) Family History Medical History Relation Name Comments Diabetes Father Hypertension Father Autoimmune disease Mother Carpal tunnel syndrome Mother Cerebral palsy Sister 1 Seizures Sister 1 Lupus Sister 2 Breast cancer Neg Hx Colon cancer Neg Hx Ovarian cancer Neg Hx Uterine cancer Neg Hx Relation Name Status Comments Father Mother Sister 1 Sister 2 Alive Social History Tobacco Use Types Packs/Day Years Used Date Smoking Tobacco: Never Smokeless Tobacco: Never Tobacco Cessation:Counseling Given: No Alcohol Use Standard Drinks/Week Comments Yes 2 (1 standard drink = 0.6 oz pur e alcohol) AUDIT-C Answer Date Recorded Q1: How often do you have a drink containing alcohol? Monthly or less 08/21/2023 Q2: How many drinks containi ng alcohol do you have on a typical day when you are drinking? Patient does not drink Frequency of Binge Drinking Not on file 08/05 PHQ-2 Answer Date Recorded PHQ-2 Total Score (If total score is 3 or more points, staff should administer the PHQ-9) 0 04/02/2020 Personal Safety Answer Date Recorded Have you ever been in or are you currently in a harmful physical or emotional relationship or is someone making you feel afraid or unsafe? 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 Not on file Not on file Not on file Obstetrics History Para Term AB IAB SAB Ectopic Multiple Livin g Live Births 1 1 Date Outcome GA Total Labor Labor/2nd/3rd Weight Sex Type Anes PTL Lisseth A1 A5 Name Clin AB Comments 01/2022: EAB, medication Last Filed Vital Signs Vital Sign Reading Time Taken Comments Blood Pressure 126/84 05/18/2025 10:41 AM CDT Pulse 91 11/15/2024 12:56 PM MANAGER DELIVERY Temperature 36.9 C (98.4 F) 01/22/2024 12:26 PM CDT Respiratory Rate 18 01/22/2024 5:30 PM CDT Oxygen Saturation 100% 01/22/2024 6:30 PM CDT Inhaled Oxygen Concentration - - Weight 122.5 kg (270 lb) 05/18/2025 10:41 AM CDT Height 162.6 cm (5' 4) 11/15/2024 12:56 PM MANAGER DELIVERY Body Mass Index 46.35 11/15/2024 12:56 PM MANAGER DELIVERY Plan of Treatment Health Maintenance Due Date Last Done Comments Chlamydia and Gonorrhea (GC/ CT) Screening 2000 Colon Cancer Screening-Colonoscopy 2000 Hepatitis C Screening 2000 Pneumococcal vaccine <65 (1 of 2 - PCV) 2019 Depression Screening 04/01/2021 04/01/2020 Cervical Cancer Screening 08/21/2024 08/21/2023 Regular Well Visit/Exam 18-64 08/21/2024 08/21/2023 Covid-19 Vaccine (3 - 2024-2 6 season) 2025 03/14/2021, 02/12/2021 Influenza Vaccine (#1) 2025 06/16/2024 DTaP/Tdap/Td Vaccine (8 - Td or Tdap) 11/21/2031 11/21/2021, 04/27/2012, 05/13/2006, Additional history exists Varicella Vaccines Completed 01/06/2013, 04/28/2002 HPV Vaccines Completed 05/24/2015, 04/01/2013, 04/27/2012 Hepatitis B Screening Completed 12/10/2021 , 10/08/2001, 2000, Additional history exists Procedures Procedure Name Priority Date/Time Associated Diagnosis Comments US PELVIS COMPLETE Routine 05/18/2025 9: 39 AM CDT Pelvic and perineal pain IGP,CTNG,RFX APT HPV ALL PTH Routine 08/21/2023 2:02 PM MANAGER DELIVERY Cervical cancer screening Screen for sexually transmitted diseases from Last 3 Months or Most Recently Relevant to Health Maintenance Results * US Pelvis Complete (05/18/2025 9:39 AM CDT) Cul de Sac Free fluid visualized VIEWPOINT Left Follicle Mean 12.0 mm&millim eters VIEWPOINT Right Follicle Mean 8.3 mm&millim eters VIEWPOINT Endometrial Thickness 14.7 mm&millim eters VIEWPOINT Anatomical Region Laterality Modality Pelvis N/A Ultrasound 05/18/2025 10:1 2 AM CDT Impressions 05/18/2025 3:58 PM CDT Anteverted uterus. EC 14.7 mm, echogenic with irregular echogenicity. Multiple follicles seen bilaterally. Small amount of free fluid seen adjacent to left ovary. Narrative Procedure Note Radha [place] MD - 05/18/2025 IMPRESSION: Anteverted uterus. EC 14.7 mm, echogenic with irregular echogenicity.Multiple follicles seen bilaterally. Small amount of free fluid seenadjacent to left ovary. us Mala Trejo NP IMG US PROCEDURES Final Re sult * IGP,CtNg,rfx Apt HPV all pth (08/21/2023 2:02 PM MANAGER DELIVERY) Clinical indication Comment [facility] - 01 Comment:NEGATIVE FOR INTRAEP ITHELIAL LESION OR MALIGNANCY. Specimen adequacy: Comment [facility] - 01 Comment: Satisfactory for evaluation. Endocervical and/or squamous metaplastic cells (endocervical component) are present. Areas of partially obscuring blood are present. Clinician provided ICD10 Comment [facility] - 01 Comment: Z12.4 Z11.3 R10.30 Performed by Comment [facility] - 01 Comment:Kat Edwards, Cyto technologist (ASCP) . . [facility] - 01 Note: Comment [facility] - 01 Comment: The Pap smear is a screening test designed to aid in the detection of premalignant and malignant conditions of the uterine cervix. It is not a diagnostic procedure and should not be used as the sole means of detecting cervical cancer. Both false-positive and false-negative reports do occur. Test methodology Comment [facility] - 01 Comment: This liquid based ThinPrep(R) pap test was screened with the use of an image guided system. . Comment [facility] - 01 Comment: The HPV DNA reflex criteria were not met with this specimen result therefore, no HPV testing was performed. Chlamydia, Nuc. Acid Amp Negative Negative [facility] Gonococcus, Nuc. Acid Amp Negative Negative [facility] 02 Thin Prep-Cervical/ Endocervical 08/21/2023 2:02 PM MANAGER DELIVERY 08/24/2023 Narrative [facility] - 08/26/2023 10:36 AM MANAGER DELIVERY Performed at: - [facility] [id number] Monument Erector: Karina Bravo MD, Phone: [phone] Performed at: - [facility] [id number] Monument Erector: Karina Bravo MD, Phone: [phone] Specimen Comment: Source.............Cervix;Endocervix Specimen Comment: No. of containers..01 ThinPrep Vial Corry Robledo NP LAB PATHOLOGY ORDERABLE S Final Result [facility] - 01 [facility] 02 from Last 3 Months or Most Recently Relevant to Health Maintenance Insurance [facility] PLAN IDPA [facility] CHOICE PLUS [facility] CHOICE PLUS [employer]PA [facility] CHOICE PLUS Advance Directives For more information, please contact: [phone] * Full Code (Latest Code Status on File) Date Activated Date Inactivated Comments 05/29/2022 6:16 PM 05/30/2022 10:32 PM * Full Code Date Activated Date Inactivated Comments 04/02/2020 1:17 AM 04/05/2020 8:30 PM Care Teams Supervisor Lathing Relationship Specialty Start Date End Date Daily [place] MD PCP - General Family Medicine 07/08/24
--- OUTSIDE RECORDS SUMMARY | 2025-06-16 10:03 | XMS_ITS | Encounter Summary ---
Author Organization [facility] Address [address] [place] [address] Phone Care Team Providers Care Farm Management Teacher Name Role Phone [place], Daily Chahal MD Primary Care Provider + Angel Conner MD Unavailable Ally Richter JEEP MECHANIC, ADVERTISING TEACHER Unavailable [place] Mas JEEP MECHANIC, ADVERTISING TEACHER Unavailable [phone] Reason for Visit * Reason Comments Medication Refill Encounter Details Date Type Department Care Team (Late st Contact Info) Description 02/20/2025 Refill [facility] - [facility]enter[facility] [address] [place] [address] Ally Richter APRN, ADVERTISING TEACHER [address] [place] [address] Medication Refill Social History Tobacco Use Types Packs/Day Years Used Date Smoking Tobacco: Never Smokeless Tobacco: Never Alcohol Use Standard Drinks/Week Comments Not Currently 0 (1 standard drink = 0.6 oz pur e alcohol) Sexually Active Control Partners Comments Yes Comments No Sex and Gender Information Value Date Recorded Sex Assigned at Not on file Legal Sex Female 2:32 PM CDT Gender Identity Not on file Sexual Orientation Not on file documented as of this encounter Miscellaneous Notes * Telephone Encounter - Ivon Vogt RN - 02/20/2025 3:06 PM CDT Medication [facility] and [facility] [place] [facility] medication standing order for pediatric and adult patients. documented in this encounter Plan of Treatment Upcoming Encounters Date Type Department Care Team (Latest Contact Info) Description 06/16/2025 10:30 AM CDT Outpatient Clinic Visit [facility] [address] [place] [address] Vangie Levy LCSW [address] [place] [address] Discharge Disposition: Discharged to home or Selfcare documented as of this encounter Goals Goal Patient Goal Type Associated Problems Recent Progress Patient-Stated? Author decrease anxiety and depression symptoms Behavioral Health Worsening( 10:50 AM CDT) Yes Vangie Levy LCSW Note: Goal/Objective: Decrease symptoms and increase coping skills. Anticipated Time Frame for Goal Completion: 6 months Goal Reviewed with: patient Readiness to change: Ready to change Department associated with goal: [facility] Steps to achieve goal: will attend counseling/psychotherapy sessions at least once monthly, at least 6 sessions, utilizing individual and/or group sessions to express thoughts and feelings. to identify, verbalize and process at least three contributing factors/triggers to anxiety and depression. to identify and verbalize at least three actions/skills to prevent and/or cope with anxiety and depression. to put into action, at least one time weekly, for one month, an action/skill to prevent and or cope with anxiety and depression. documented as of this encounter Visit Diagnoses Diagnosis Chronic RUQ pain Abdominal pain, right upper quadrant Gastroesophageal reflux disease, unspecified whether esophagitis present Nausea and vomiting, unspecified vomiting type documented in this encounter Care Teams Farm Management Teacher Relationship Specialty Start Date End Date Daily [place] MD [address] [place] [address] [address] PCP - General Family Medicine 06/30/22 Angel Conner MD [address] [place] [phone] Consulting Physician Oncology 06/30/22 Ally Richter APRN, ADVERTISING TEACHER [address] [place] [address] Nurse Practitioner Advanced Practice Nurse 07/22/24 [place] Mas APRN, ADVERTISING TEACHER [address] [place] [address] Nurse Practitioner Advanced Practice Nurse 08/12/24 documented as of this encounter
--- OUTSIDE RECORDS SUMMARY | 2025-06-16 10:03 | XMS_ITS | Encounter Summary ---
Author Organization [facility] Address [address] [place] [address] Phone Care Team Providers Care Emergency Room Registered Nurse Name Role Phone Rudy Daily Chahal MD Primary Care Provider + Angel Conner MD Unavailable [phone] Ally Richter TREE FRUIT AND NUT FARMING SUPERVISOR, TRANSPORTATION ASSOCIATE Unavailable [place] Mas TREE FRUIT AND NUT FARMING SUPERVISOR, TRANSPORTATION ASSOCIATE Unavailable [phone] Encounter Details Date Type Department Care Team (Late st Contact Info) Description 08/25/2024 Behavioral Health Patient Survey [facility] [address] [place] [phone] Vangie Levy, DOCK BOSS [address] [place] [address] Social History Tobacco Use Types Packs/Day Years [...] on file documented as of this encounter Plan of Treatment Upcoming Encounters Date Type Department Care Team (Latest Contact Info) Description 06/16/2025 10:30 AM CDT Outpatient Clinic Visit [facility] [address] [place] [address] Vangie Levy LCSW [address] [place] [address] Discharge Disposition: Discharged to home or Selfcare [...] Ready to change Department associated with goal: [facility] Steps to achieve goal: [...] documented as of this encounter Visit Diagnoses Not on filedocumented in this encounter Care Teams Emergency Room Registered Nurse Relationship Specialty Start Date End Date Daily [place] MD [address] [place] [id number] PCP - General Family Medicine 06/30/22 Angel Conner MD [address] [place] [phone] Consulting Physician Oncology 06/30/22 Ally Richter APRN, TRANSPORTATION ASSOCIATE [address] [place] [address] Nurse Practitioner Advanced Practice Nurse 07/22/24 [place] Mas APRN, TRANSPORTATION ASSOCIATE [address] [facility] [place] [address] Nurse Practitioner Advanced Practice Nurse 08/12/24 documented as of this encounter
--- OUTSIDE RECORDS SUMMARY | 2025-06-16 10:03 | XMS_ITS | Clinical Summary ---
Author Organization [facility] Address [address] [place] [address] Phone Care Team Providers Care Magnetic Resonance Imaging Coordinator Name Role Phone Daily Grant MD Primary Care Provider + Angel Conner MD Unavailable [phone] Ally Richter APRN, CATTERY OPERATOR Unavailable Roosevelt Mas APRN, CATTERY OPERATOR Unavailable Allergies No known active allergies Medications topiramate (TOPAMAX) 200 MG Tablet Take 200 mg by mouth 2 times daily. 2 Active hydrOXYzine (ATARAX) 25 MG Tablet TAKE 1 TABLET BY MOUTH THREE TIMES DAILY NEEDED 2 Active omeprazole (PriLOSEC) 40 MG CAPSULE DELAYED RELEASE Take 1 Capsule by mouth daily. 0 Active budesonide-form oterol fumarate (SYMBICORT) 80-4.5 MCG/ACT Aerosol take 2 Puffs by inhalation. 2 Active albuterol 108 (90 Base) MCG/ACT Aerosol Solution take 2 Puffs by inhalation. 8 Active ferrous sulfate 325 (65 Fe) MG TabletIndicatio ns:Iron deficiency anemia, unspecified iron deficiency anemia type Take 1 Tablet by mouth Every other day. 90 Tablet 1 3 Active Additional Information Patient not taking.Reported on 05/26/2025 ALPRAZolam (XANAX) 0.5 MG Tablet TAKE 1/2 TO 1 TABLET BY MOUTH TWICE DAILY NEEDED 4 Active escitalopram (LEXAPRO) 20 MG Tablet Take 1 Tablet by mouth daily. 5 Active albuterol (PROVENTIL, VENTOLIN) (2.5 MG/3ML) 0.083% Nebulizer Soln USE 1 ML VIA NEBULIZER EVERY 4 HOURS NEEDED FOR SHORTNESS OF BREATH OR WHEEZING Active busPIRone HCl 7.5 MG Tablet Take 1 Tablet by mouth 2 times daily. Active levETIRAcetam (KEPPRA) 750 MG Tablet Take 750 mg by mouth 2 times daily. Active sodium chloride 1 GM Tablet Take 1 g by mouth daily. 5 Active ondansetron (ZOFRAN-ODT) 4 MG TABLET DISPERSIBLEIndi cations:Nausea and vomiting, unspecified vomiting type Take 1 Tablet by mouth every 8 hours as needed for Nausea - 1st line. 30 Tablet 1 5 Active famotidine (PEPCID) 20 MG TabletIndicatio ns:Chronic RUQ pain,Gastroesop hageal reflux disease, unspecified whether esophagitis present,Nausea and vomiting, unspecified vomiting type Take 1 Tablet by mouth 2 times daily. 180 Tablet 1 5 Active folic acid (FOLVITE) 1 MG Tablet Take 1 Tablet by mouth daily. 30 Tablet 5 Active ondansetron (ZOFRAN-ODT) 4 MG TABLET DISPERSIBLE Take 4 mg by mouth. 2 025 Discontin ued(Reord er) famotidine (PEPCID) 20 MG TabletIndicatio ns:Chronic RUQ pain,Gastroesop hageal reflux disease, unspecified whether esophagitis present,Nausea and vomiting, unspecified vomiting type TAKE 1 TABLET BY MOUTH TWICE DAILY 90 Tablet 1 5 025 Discontin ued(Reord er) Active Problems Problem Noted Date Diagnosed Date GEEG (generalized anxiety disorder) 01/05/2024 Depression 01/05/2024 Vitamin D deficiency 01/28/2023 Iron deficiency anemia 07/31/2022 Encounters Date Type Department Care Team Description 06/06/2025 10:30 AM CDT Outpatient Clinic Visit [facility] [address] [place] [address] Vangie Levy LCSW GEGE (generalized anxiety disorder) (Primary Dx); ADHD Discharge Disposition: Discharged to home or Selfcare 06/06/2025 Travel 05/29/2025 Results Follow-Up [facility] [address] [address] Mica Taylor APRN, CATTERY OPERATOR IRON,TRANSFERN,CA LC.TIBC,%SAT, FOLIC ACID (FOLATE), VITAMIN B12, Additional followed-up results: 8 05/26/2025 11:00 AM CDT [facility] [place] [address] Ally Richter APRN, CATTERY OPERATOR Chronic RUQ pain (Primary Dx); Abdominal bloating; Gastroesophageal reflux disease, unspecified whether esophagitis present; Nausea and vomiting, unspecified vomiting type Discharge Disposition: Discharged to home or Selfcare 05/25/2025 12:30 PM CDT Telemedicine [facility] [address] [place] [address] Vangie Levy LCSW GEGE (generalized anxiety disorder) (Primary Dx); ADHD Discharge Disposition: Discharged to home or Selfcare 05/25/2025 Travel 05/04/2025 Travel 04/27/2025 Telephone [facility] [address] [place] [address] Blue Scales MD Appointment 04/20/2025 1:[address] [facility] [address] [place] [address] Vangie Levy LCSW GEGE (generalized anxiety disorder) (Primary Dx) Discharge Disposition: Discharged to home or Selfcare 04/20/2025 Behavioral Health Patient Survey [facility] [address] [place] [address] Vangie Levy LCSW 04/20/2025 Travel 04/04/2025 Travel from Last 3 Months Immunizations Immunization Administration Dates Next Due Influenza, Injectable, Mdck, Preservative Free 0 06/16/2024 Family History Medical History Relation Name Comments Diabetes Father Hypertension Father Chronic Obstructive Pulmonary Disease Mother Relation Name Status Comments Father Alive Mother Alive Social History Tobacco Use Types Packs/Day Years Used Date Smoking Tobacco: Never Smokeless Tobacco: Never Tobacco Cessation:Counseling Given: Not Answered Alcohol Use Standard Drinks/Week Comments Not Currently 0 (1 standard drink = 0.6 oz pur e alcohol) Sexually Active Control Partners Comments Yes Comments No Sex and Gender Information Value Date Recorded Sex Assigned at Not on file Legal Sex Female 2:32 PM CDT Gender Identity Not on file Sexual Orientation Not on file Last Filed Vital Signs Vital Sign Reading Time Taken Comments Blood Pressure 124/70 05/26/2025 10:59 AM CDT Pulse 75 05/26/2025 10:59 AM CDT Temperature 36.9 C (98.4 F) 05/26/2025 10:59 AM CDT Respiratory Rate 16 05/26/2025 10:5 9 AM CDT Oxygen Saturation 99% 05/26/2025 10: 59 AM CDT Inhaled Oxygen Concentration - - Weight 121.4 kg (267 lb 9.6 oz) 025 10:59 AM CDT Height 162.6 cm (5' 4) 05/26/2025 10:5 9 AM CDT Body Mass Index 45.93 05/26/2025 10:59 AM CDT Plan of Treatment Upcoming Encounters Date Type Department Care Team (Latest Contact Info) Description 06/16/2025 10:30 AM CDT Outpatient Clinic [facility] [address] [place] [address] Vangie Levy, CATTERY OPERATOR [address] [place] [address] Discharge Disposition: Discharged to home or Selfcare Health Maintenance Due Date Last Done Comments Hepatitis C Virus (HCV) Screening 2000 Pap Smear 2021 Influenza Immunization (#1) 2025 06/16/2024, 1 SARS-COV-2 Immunization ( season) 2025 03/14/2021, 02/12/2021 Respiratory Syncytial Virus (RSV) Immunization (Adult) (1 - 1-dose 75+ series) 2075 Human Papillomavirus (HPV) Immunization Completed 05/24/2015, 01/06/2013, 04/27/2012 Meningococcal Immunization (ACWY) Completed 05/14/2017, 04/27/2012 DTaP/Tdap/Td Immunization Discontinued 2021, 04/27/2012, 05/13/2006, Additional history exists TdaP Immunization Completed 11/21/2021, 04/27/2012 Hepatitis B Immunization Completed 022, 10/08/2001, 2000, Additional history exists Pneumococcal Immunization Combined Aged Out No longer eligible based on patient's age to complete this topic Rotavirus Immunization Aged Out No lo nger eligible based on patient's age to complete this topic Goals Goal Patient Goal Type Associated Problems Recent Progress Patient-Stated? Author decrease anxiety and depression symptoms Behavioral Health Worsening( 10:50 AM CDT) Yes Vangie Levy, CATTERY OPERATOR Note: Goal/Objective: Decrease symptoms and increase coping skills. Anticipated Time Frame for Goal Completion: 6 months Goal Reviewed with: patient Readiness to change: Ready to change Department associated with goal: [facility] Steps to achieve goal: [...] and or cope with anxiety and depression. Procedures Procedure Name Priority Date/Time Associated Diagnosis Comments PANCREATIC ELASTASE, FECES Routine 05/27/2025 1:56 PM CDT Chronic RUQ pain Abdominal bloating CBC WITH AUTO DIFFERENTIAL Routine 05/26/2025 12:04 PM CDT Iron deficiency anemia, unspecified iron deficiency anemia type IMMUNOGLOBULIN A (IGA) - CELIAC Routine 05/26/2025 12:04 PM CDT Chronic RUQ pain Abdominal bloating Nausea and vomiting, unspecified vomiting type GLIADIN IGA ANTIBODY - CELIAC Routine 05/26/2025 12:04 PM CDT Chronic RUQ pain Abdominal bloating Nausea and vomiting, unspecified vomiting type TISSUE TRANSGLUTAMINASE IGA - CELIAC Routine 05/26/2025 12:04 PM CDT Chronic RUQ pain Abdominal bloating Nausea and vomiting, unspecified vomiting type COMPLETE BLOOD COUNT (CBC) WITH DIFF Routine 05/26/2025 12:04 PM CDT Iron deficiency anemia, unspecified iron deficiency anemia type CMP (COMPREHENSIVE METABOLIC PANEL) Routine 05/26/2025 12:04 PM CDT Iron deficiency anemia, unspecified iron deficiency anemia type FERRITIN Routine 05/26/2025 12:04 PM CDT Iron deficiency anemia, unspecified iron deficiency anemia type VITAMIN B12 Routine 05/26/2025 12:04 PM CDT Iron deficiency anemia, unspecified iron deficiency anemia type FOLIC ACID (FOLATE) Routine 05/26/2025 1 2:04 PM CDT Iron deficiency anemia, unspecified iron deficiency anemia type IRON,TRANSFERN,CALC.TIBC ,%SAT Routine 05/26/2025 12:04 PM CDT Chronic RUQ pain Abdominal bloating Nausea and vomiting, unspecified vomiting type CELIAC ANTIBODY PANEL Routine 05/26/2025 12:04 PM CDT Chronic RUQ pain Abdominal bloating Nausea and vomiting, unspecified vomiting type FOOD ALLERGY PROFILE Routine 05/26/2025 12:04 PM CDT Chronic RUQ pain Abdominal bloating Nausea and vomiting, unspecified vomiting type from Last 3 Months Results * PANCREATIC ELASTASE, FECES (05/27/2025 1:56 PM CDT) PANCREATIC ELASTASE, FECES >800.0 >=200.0 mcg/g 05/29/2025 12:13 PM CDT [facility] Comment: >200 mcg/g Normal 100 - <200 mcg/g Moderate Pancreatic Insufficiency < 100 mcg/g Severe Pancreatic Insufficiency Stool Non-Phlebotomy Collection / Unknown 05/27/2025 1:56 PM CDT 05/27/2025 2:28 PM CDT Ally Richter LICENSED SALES ASSISTANT, CATTERY OPERATOR IMMUNOLOGY ORDERA BLES Final Result Performing Organization Address [facility]/ZIP Co de Phone Number [facility] [address] [id number], * (ABNORMAL) IRON,TRANSFERN,CALC.TIBC,%SAT (05/26/2025 12:04 PM CDT) IRON 44 25 - 156 mcg/dL 05/26/2025 1:37 PM CDT [facility] TRANSFERRIN 198 180 - 382 mg/dL 05/26/2025 1:37 PM CDT [facility] TIBC, CALCULATED 248(L) 265 - 497 mcg/dL 05/26/2025 1:37 PM CDT [facility] % SATURATION * 18 15 - 62 % 05/26/2025 1:37 PM CDT [facility] Blood Venipuncture / Unknown 05/26/2025 12:04 PM CDT 05/26/2025 12:21 PM CDT Mica Taylor LICENSED SALES ASSISTANT, CATTERY OPERATOR CHEMISTRY ORDERABLE S Final Result Performing Organization Address City/[facility]/ZIP Co de Phone Number [facility] [address] [facility] [place] [address] * (ABNORMAL) FOOD ALLERGY PROFILE (05/26/2025 12:04 PM CDT) IGE 172 <=214 kU/L 05/31/2025 2:28 PM CDT [facility] FOOD MILK (COW) 1.79(H) <0.35 kU/L 2:28 PM CDT [facility] Comment:Component testing av ailable upon request. Serum held for up to seven days. Call Laboratory if further testing is desired. FOOD CASHEW NUT 0.15 <0.35 kU/L 2:28 PM CDT [facility] FOOD WHEAT 0.53(H) <0.35 kU/L 05/31/2025 2:28 PM CDT [facility] Food Tuna IgE 05/31/2025 2:28 PM CDT [facility] Comment:Quantity not suffici ent FOOD PEANUT <0.10 <0.35 kU/L 05/31/2025 2:28 PM CDT [facility] FOOD SOYBEAN <0.10 <0.35 kU/L 05/31/2025 2:28 PM CDT [facility] FOOD SALMON <0.10 <0.35 kU/L 05/31/2025 2:28 PM CDT [facility] FOOD CODFISH <0.10 <0.35 kU/L 05/31/2025 2:28 PM CDT [facility] FOOD SOTERO NUT <0.10 <0.35 kU/L 05/31/2025 2:28 PM CDT [facility] FOOD SESAME <0.10 <0.35 kU/L 05/31/2025 2:28 PM CDT [facility] FOOD WALNUT <0.10 <0.35 kU/L 05/31/2025 2:28 PM CDT [facility] FOOD SHRIMP <0.10 <0.35 kU/L 05/31/2025 2:28 PM CDT [facility] FOOD SCALLOP <0.10 <0.35 kU/L 05/31/2025 2:28 PM CDT [facility] FOOD EGG WHITE 0.58(H) <0.35 kU/L 05/31/2025 2:28 PM CDT [facility] Comment:Component testing av ailable upon request. Serum held for up to seven days. Call Laboratory if further testing is desired. FOOD ALMOND NUT IGE <0.10 <0.35 kU/L 05/31/2025 2:28 PM CDT [facility] Blood Venipuncture / Unknown 05/26/2025 12:04 PM CDT 05/26/2025 12:22 PM CDT Narrative [facility] - 05/31/2025 2:28 PM CDT IgE Class kU/L Level of IgE AB 0 <0.35 Absent/undetectable 1 0.35-0.70 Low Level 2 0.71-3.50 Moderate Level 3 3.51-17.50 High Level 4 17.51-50.00 Very High Level 5 50.01-100.00 Very High Level 6 >100.00 Very High Level Ally Richter LICENSED SALES ASSISTANT, CATTERY OPERATOR CHEMISTRY ORDERAB LES Final Result Performing Organization Address City/[facility]/ZIP Co de Phone Number [facility] [address] [place] [address], [place] * IMMUNOGLOBULIN A (IGA) - CELIAC (05/26/2025 12:04 PM CDT) IMMUNOGLOBULIN A 192 65 - 421 mg/dL 05/30/2025 5:53 PM CDT [facility] Blood Venipuncture / Unknown 05/26/2025 12:04 PM CDT 05/26/2025 12:21 PM CDT Ally Richter LICENSED SALES ASSISTANT, CATTERY OPERATOR IMMUNOLOGY ORDERA BLES Final Result Performing Organization Address City/[facility]/ZIP Co de Phone Number [facility] [address] [place] [address], [place] * GLIADIN IGA ANTIBODY - CELIAC (05/26/2025 12:04 PM CDT) DEAMIDATED GLIADIN IGA 0.2 <15.0 U/mL 05/30/2025 1:22 PM CDT [facility] Blood Venipuncture / Unknown 05/26/2025 12:04 PM CDT 05/26/2025 12:21 PM CDT Narrative [facility] - 05/30/2025 1:22 PM CDT Antibody testing was performed by multiplex flow immunoassay on the BioPlex platform. us Ally Richter APRN, CNP IMMUNOLOGY ORDERA BLES Final Result Performing Organization Address City/[facility]/ZIP Co de Phone Number [facility] [address] [place] [address], [place] * TISSUE TRANSGLUTAMINASE IGA - CELIAC (05/26/2025 12:04 PM CDT) TTG IGA <0.5 <15.0 U/mL 05/30/2025 1:22 PM CDT [facility] Blood Venipuncture / Unknown 05/26/2025 12:04 PM CDT 05/26/2025 12:21 PM CDT Narrative [facility] - 05/30/2025 1:22 PM CDT Antibody testing was performed by multiplex flow immunoassay on the BioPlex platform. us Ally Richter APRN, CNP IMMUNOLOGY ORDERA BLES Final Result [facility] [address] [place] [address], [place] * CBC WITH AUTO DIFFERENTIAL (05/26/2025 12:04 PM CDT) WBC 5.40 4.00 - 12.00 10(3)/mcL 05/26/2025 12:29 PM CDT [facility] RBC 4.81 3.80 - 5.30 10(6)/mcL 05/26/2025 12:29 PM CDT [facility] HEMOGLOBIN (HGB) 13.5 12.0 - 15.8 g/dL 05/26/2025 12:29 PM CDT [facility] HEMATOCRIT (HCT) 40.4 36.0 - 47.0 % 05/26/2025 12:29 PM CDT [facility] MCV 84.0 82.0 - 96.0 fL 05/26/2025 12:29 PM CDT [facility] MCH 28.1 26.0 - 34.0 pg 05/26/2025 12:29 PM CDT [facility] MCHC 33.4 31.0 - 36.0 g/dL 05/26/2025 12:29 PM CDT [facility] PLATELET COUNT 246 140 - 440 10(3)/mcL 05/26/2025 12:29 PM CDT [facility] RDW 13.2 11.8 - 15.5 % 05/26/2025 12:29 PM CDT [facility] MPV 10.1 9.7 - 12.4 fL 05/26/2025 12:29 PM CDT [facility] NEUTROPHILS 52.5 47.0 - 73.0 % 05/26/2025 12:29 PM CDT [facility] LYMPHOCYTES 39.4 18.0 - 42.0 % 05/26/2025 12:29 PM CDT [facility] MONOCYTES 6.3 4.0 - 12.0 % 05/26/2025 12:29 PM CDT [facility] EOSINOPHILS 0.7 0.0 - 5.0 % 05/26/2025 12:29 PM CDT [facility] BASOPHILS 0.7 0.0 - 1.0 % 05/26/2025 12:29 PM CDT [facility] IMMATURE GRANULOCYTE 0.4 0.0 - 0.4 % 05/26/2025 12:29 PM CDT [facility] ABSOLUTE NEUTROPHILS 2.83 1.60 - 7.70 10(3)/mcL 05/26/2025 12:29 PM CDT [facility] ABSOLUTE LYMPHOCYTES 2.13 1.30 - 3.20 10(3)/mcL 05/26/2025 12:29 PM CDT [facility] ABSOLUTE MONOCYTES 0.34 0.20 - 1.00 10(3)/mcL 05/26/2025 12:29 PM CDT [facility] ABSOLUTE EOSINOPHIL 0.04 0.00 - 0.40 10(3)/mcL 05/26/2025 12:29 PM CDT [facility] ABSOLUTE BASOPHILS 0.04 0.00 - 0.10 10(3)/mcL 05/26/2025 12:29 PM CDT [facility] ABSOLUTE IMMATURE GRANULOCYTE 0.02 0.00 - 0.03 10 (3) mcL. 05/26/2025 12:29 PM CDT [facility] NRBC PER 100 WBC 0 05/26/20 12:29 PM CDT [facility] Blood Venipuncture / Unknown 05/26/2025 12:04 PM CDT 05/26/2025 12:22 PM CDT us Mica Taylor APRN, [place]HE[place] HEMATOLOGY ORDERABL ES Final Result Performing Organization Address City/[facility]/ZIP Co de Phone Number [facility] [address] [place] [address] * VITAMIN B12 (05/26/2025 12:04 PM CDT) VITAMIN B12 320 213 - 816 pg/mL 05/26/2025 1:51 PM CDT [facility] Blood Venipuncture / Unknown 05/26/2025 12:04 PM CDT 05/26/2025 12:23 PM CDT us Mica Taylor APRN, CATTERY OPERATOR CHEMISTRY ORDERABLE S Final Result [facility] [address] [place] [address] * (ABNORMAL) FOLIC ACID (FOLATE) (05/26/2025 12:04 PM CDT) [facility] FOLATE 6.4(L) 7.0 - 31.4 ng/mL 05/26/2025 1:51 PM CDT [facility] IS THE PATIENT REQUIRED TO BE FASTING? No 05/26/2025 1:51 PM CDT [facility] Blood Venipuncture / Unknown 05/26/2025 12:04 PM CDT 05/26/2025 12:23 PM CDT Mica Taylor APRN, CATTERY OPERATOR CHEMISTRY ORDERABLE S Final Result Performing Organization Address [facility]/ZIP Co de Phone Number [facility] [address] [place] [address] * FERRITIN (05/26/2025 12:04 PM CDT) [facility] FERRITIN 42 5 - 204 ng/mL 05/26/2025 1:50 PM CDT [facility] Blood Venipuncture / Unknown 05/26/2025 12:04 PM CDT 05/26/2025 12:21 PM CDT Mica Taylor APRN, CATTERY OPERATOR CHEMISTRY ORDERABLE S Final Result [facility] [address] [place] [address] * (ABNORMAL) CMP (COMPREHENSIVE METABOLIC PANEL) (05/26/2025 12:04 PM CDT) [facility] SODIUM 141 136 - 145 mmol/L 05/26/2025 1:37 PM CDT [facility] POTASSIUM 4.3 3.5 - 5.1 mmol/L 05/26/2025 1:37 PM CDT [facility] CHLORIDE 112(H) 98 - 107 mmol/L 05/26/2025 1:37 PM [facility] CO2, VENOUS 19(L) 22 - 30 mmol/L 05/26/2025 1:37 PM [facility] ANION GAP 14.3 <18.0 mmol/L 05/26/2025 1:37 PM [facility] GLUCOSE 97 70 - 99 mg/dL 05/26/2025 1:37 PM T [facility] BUN 11 5 - 18 mg/dL 05/26/2025 1:37 PM [facility] CREATININE, BLOOD 0.79 0.60 - 1.00 mg/dL 05/26/2025 1:37 PM [facility] BUN/CREATININE RATIO 14 12 - 20 ratio 05/26/2025 1:37 PM [facility] TOTAL PROTEIN 7.1 6.0 - 8.0 g/dL 05/26/2025 1:37 PM [facility] ALBUMIN 4.3 3.5 - 5.0 g/dL 05/26/2025 1:37 PM [facility] A/G RATIO 1.5 1.0 - 2.2 05/26/2025 1:37 PM [facility] CALCIUM 8.8 8.7 - 10.5 mg/dL 05/26/2025 1:37 PM [facility] T BILI 0.2 0.2 - 1.2 mg/dL 05/26/2025 1:37 PM [facility] SGOT (AST) 17 <43 U/L 05/26/2025 1:37 PM [facility] SGPT (ALT) 16 <56 U/L 05/26/2025 1:37 PM [facility] ALKALINE PHOSPHATASE 35(L) 40 - 150 U/L 05/26/2025 1:37 PM [facility] IS THE PATIENT REQUIRED TO BE FASTING? No 05/26/2025 1:37 PM CDT [facility] GFR, ESTIMATED >60 >=60 05/26/2025 1:37 PM CDT [facility] Comment: Creatinine Clearance is the preferred criteria for selecting drug dose adjustments in renally impaired patients. The GFR is provided as additional pertinent clinical information. GFR is reported in mL/min/1.73 sq m. Calculation based on the 2020 Chronic Kidney Disease Epidemiology Collaboration (CKD-EPI) equation refit without adjustment for race. GFR, EST. >60 >=60 025 1:37 PM CDT [facility] Comment: Creatinine Clearance is the preferred criteria for selecting drug dose adjustments in renally impaired patients. The GFR is provided as additional pertinent clinical information. GFR is reported in mL/min/1.73 sq m. Calculation based on the 2009 Chronic Kidney Disease Epidemiology Collaboration (CKD-EPI). GFR, EST. NONAFRICAN >60 >=60 05/26/2025 1:37 PM CDT [facility] Comment: Creatinine Clearance is the preferred criteria for selecting drug dose adjustments in renally impaired patients. The GFR is provided as additional pertinent clinical information. GFR is reported in mL/min/1.73 sq m. Calculation based on the 2009 Chronic Kidney Disease Epidemiology Collaboration (CKD-EPI). Blood Venipuncture / Unknown 05/26/2025 12:04 PM CDT 05/26/2025 12:21 PM CDT Mica Taylor APRN, CNP CHEMISTRY ORDERABLE S Final Result [facility] [address] [place] [address] from Last 3 Months Insurance [facility]ICAID [place] [facility] MEDICAID [place] Care Teams Magnetic Resonance Imaging Coordinator Relationship Specialty Start Date End Date Daily Grant MD [address] [place] [id number] PCP - General Family Medicine 06/30/22 Angel Conner MD [address] [place] [phone] Consulting Physician Oncology 06/30/22 Ally Richter APRN, CATTERY OPERATOR [address] [place] [address] Nurse Practitioner Advanced Practice Nurse 07/22/24 Roosevelt Mas APRN, CATTERY OPERATOR [address] [place] [address] Nurse Practitioner Advanced Practice Nurse 08/12/24
--- OUTSIDE RECORDS SUMMARY | 2025-06-16 10:03 | XMS_ITS | Encounter Summary ---
Author Organization [facility] Address [address] [place] [address] Phone Care Team Providers Care Printing Technician Name Role Phone Rudy Daily Chahal MD Primary Care Provider + Angel Conner MD Unavailable [phone] Ally Richter MODULAR HOME CREW MEMBER, JAWBONE PULLER Unavailable Roosevelt Mas MODULAR HOME CREW MEMBER, JAWBONE PULLER Unavailable [phone] Encounter Details Date Type Department Care Team (Late st Contact Info) Description 04/20/2025 Behavioral Health Patient Survey [facility] [address] [place] [phone] Vangie Levy, FLOTATION TENDER HELPER [address] [place] [address] Social History Tobacco Use Types Packs/Day Years [...] 06/16/2025 10:30 AM CDT Outpatient Clinic Visit [facility] [address] [place] [address] Vangie Levy LCSW [address] [place] [address] Discharge Disposition: Discharged to home or Selfcare [...] to change Department associated with goal: [facility] Steps to achieve goal: [...] on filedocumented in this encounter Care Teams Printing Technician Relationship Specialty Start Date End Date Daily Grant MD [address] [place] [id number] PCP - General Family Medicine 06/30/22 Angel Conner MD [address] [place] [phone] Consulting Physician Oncology 06/30/22 Ally Richter APRN, JAWBONE PULLER [address] [place] [address] Nurse Practitioner Advanced Practice Nurse 07/22/24 Roosevelt Mas APRN, JAWBONE PULLER [address] [facility] [place] [address] Nurse Practitioner Advanced Practice Nurse 08/12/24 documented as of this encounter
--- OUTSIDE RECORDS SUMMARY | 2025-06-16 10:03 | XMS_ITS | Encounter Summary ---
Author Organization [facility] Address [address] [place] [address] Phone Care Team Providers Care Road Roller Operator Name Role Phone Daily Grant MD Primary Care Provider + Angel Conner MD Unavailable [phone] Ally Richter APRN, CEMENT FINISHING SUPERVISOR Unavailable Roosevelt Mas GIS DATABASE ADMINISTRATOR, CEMENT FINISHING SUPERVISOR Unavailable [phone] Reason for Visit * Reason Comments Medication Refill Encounter Details Date Type Department Care Team (Late st Contact Info) Description 02/01/2023 Refill [facility] [address] [phone] Noemi Collier, PAC Medication Refill Social History Tobacco Use Types [...] on file Sexual Orientation Not on file COVID-19 Exposure Response Date Recorded In the last 10 days, have yo u been in contact with someone who was confirmed or suspected to have Coronavirus/COVID-19? No / Unsure 01/28/2023 1:02 PM CDT documented as of this encounter Plan of Treatment Upcoming Encounters Date Type Department Care Team (Latest Contact Info) Description 06/16/2025 10:30 AM CDT Out[facility] [address] [place] [address] Vangie Levy, HOTEL BAGGAGE HANDLER [address] [place] [address] Discharge Disposition: Discharged to home or Selfcare documented as of this encounter Visit Diagnoses Diagnosis Vitamin D deficiency Unspecified vitamin D deficiency documented in this encounter Care Teams Road Roller Operator Relationship Specialty Start Date End Date Daily Grant MD [address] [place] [address] PCP - General Family Medicine 06/30/22 Angel Conner MD [address] [place] [phone] Consulting Physician Oncology 06/30/22 Ally Richter APRN, PACHECO [address] [place] [address] Nurse Practitioner Advanced Practice Nurse 07/22/24 Roosevelt Mas APRN, CEMENT FINISHING SUPERVISOR [address] [place] [address] Nurse Practitioner Advanced Practice Nurse 08/12/24 documented as of this encounter
--- OUTSIDE RECORDS SUMMARY | 2025-06-16 10:03 | XMS_ITS | Encounter Summary ---
Author Organization [facility] Address [address] [place] [address] Phone Care Team Providers Care Underliner Name Role Phone Rudy Daily Chahal MD Primary Care Provider + Angel Conner MD Unavailable [phone] Ally Richter APRN, CARBON PAPER COATING MACHINE SETTER Unavailable Roosevelt Mas PRIOR AUTHORIZATION TECHNICIAN, CARBON PAPER COATING MACHINE SETTER Unavailable [phone] Encounter Details Date Type Department Care Team (Latest Contact Info) Description 05/29/2025 Results Follow-Up [facility] [address] [phone] Mica Taylor, PRIOR AUTHORIZATION TECHNICIAN, CARBON PAPER COATING MACHINE SETTER [address] [place] [phone] IRON,TRANSFERN,CALC. TIBC,%SAT, FOLIC ACID (FOLATE), VITAMIN B12, Additional followed-up results: 8 Social History Tobacco Use Types Packs/Day Years [...] encounter Miscellaneous Notes * Telephone Encounter - Sheila Patel RN - 05/29/2025 3:07 PM CDT Spoke with pt and relayed message below. Pt verbalized understanding. Medication sent to preferred pharmacy. Pt is currently out of town and would like to call back to schedule FU. Please schedule ptat earliest convenience. * Telephone Encounter - Sheila Patel RN - 05/29/2025 10:53 AM CDT When would you like pt to follow up? Thanks * Telephone Encounter - Sheila Patel RN - 05/29/2025 10:51 AM CDT ----- Message from Mica Taylor APRN, CNP sent at 05/29/2025 9:28 AM CDT ----- Please have patient start folic acid 1mg daily and make sure follow up scheduled. Thanks! ----- Message ----- From: Tyrese Clark Background User Sent: 05/26/2025 12:29 PM CDT To: Mica Taylor APRN, CARBON PAPER COATING MACHINE SETTER documented in this encounter Plan of Treatment Upcoming Encounters Date Type Department Care Team (Latest Contact Info) Description 06/16/2025 10:30 AM CDT Outpatient Clinic Visit [facility] [address] [place] [address] Vangie Levy, [facility] [address] [place] [address] Discharge Disposition: Discharged to home or Selfcare documented as of this encounter Goals Goal Patient Goal Type Associated Problems Recent Progress Patient-Stated? Author decrease anxiety and depression symptoms Behavioral Health Worsening( 10:50 AM CDT) Yes Vangie Levy, DATA MANAGEMENT MANAGER Note: Goal/Objective: Decrease symptoms and increase coping skills. Anticipated Time Frame for Goal Completion: 6 months Goal Reviewed with: patient Readiness to change: Ready to change Department associated with goal: [facility] Steps to [...] on filedocumented in this encounter Care Teams Underliner Relationship Specialty Start Date End Date Daily Grant MD [address] [place] [phone] PCP - General Family Medicine 06/30/22 Angel Conner MD [address] [place] [phone] Consulting Physician Oncology 06/30/22 Ally Richter APRN, CARBON PAPER COATING MACHINE SETTER [address] [place] [address] Nurse Practitioner Advanced Practice Nurse 07/22/24 Roosevelt Mas APRN, CARBON PAPER COATING MACHINE SETTER [address] [place] [address] Nurse Practitioner Advanced Practice Nurse 08/12/24 documented as of this encounter
--- OUTSIDE RECORDS SUMMARY | 2025-06-16 10:03 | XMS_ITS | Encounter Summary ---
Author Organization [facility] Address [address] [place] [address] Phone Care Team Providers Care Nutrition Assistant Name Role Phone Rudy Daily Chahal MD Primary Care Provider + Angel Conner MD Unavailable [phone] Ally Richter BREAST BUFFER, CNC MILL SET UP OPERATOR Unavailable Roosevelt Mas BREAST BUFFER, CNC MILL SET UP OPERATOR Unavailable [phone] Encounter Details Date Type Department Care Team (Late st Contact Info) Description 11/01/2024 Behavior[facility] [address] [place] [phone] Vangie Levy, TRADEMARK ATTORNEY [address] [place] [address] Social History Tobacco Use Types Packs/Day Years [...] 06/16/2025 10:30 AM CDT Outpatient Clinic Visit [facility] 1 [place] [address] Vangie Levy LCSW [address] [place] [address] Discharge Disposition: Discharged to home or Selfcare [...] Ready to change Department associated with goal: [facility] Steps to [...] on filedocumented in this encounter Care Teams Nutrition Assistant Relationship Specialty Start Date End Date Daily Grant MD [address] [place] [address] PCP - General Family Medicine 06/30/22 Angel Conner MD [address] [place] [phone] Consulting Physician Oncology 06/30/22 Ally Richter APRN, CNC MILL SET UP OPERATOR [address] [place] [address] Nurse Practitioner Advanced Practice Nurse 07/22/24 Roosevelt Mas APRN, CNC MILL SET UP OPERATOR [address] [facility] [place] [address] Nurse Practitioner Advanced Practice Nurse 08/12/24 documented as of this encounter
--- OUTSIDE RECORDS SUMMARY | 2025-06-16 10:08 | XMS_ITS | Clinical Summary ---
Author Organization [facility] Address [address] [place] [address] Care Team Providers Care Api Product Manager Name Role Phone Daily Grant MD Primary Care Provider [phone] Allergies No known active allergies Medications benzonatate (TESSALON) 100 MG capsule Take 1 capsule (100 mg total) by mouth every 8 (eight) hours. 06/26/20 21 Active SYMBICORT 80-4.5 MCG/ACT inhaler 01/29/20 22 Active citalopram (CELEXA) 20 MG tablet TAKE 1/2 TABLET BY MOUTH DAILY FOR 10 DAYS THEN TAKE 1 TABLET BY MOUTH DAILY 12/04/19 23 Active butalbital-acetami nophen-caffeine (ESGIC) 50-325-40 MG tablet TAKE 1 TABLET BY MOUTH EVERY 4 HOURS NEEDED FOR HEADACHE 05/26/20 22 Active ferrous sulfate, 65 mg elemental, 325 (65 FE) MG tablet Take 1 tablet (325 mg total) by mouth every other day. 12/01/19 23 Active FLUoxetine (PROZAC) 40 MG capsule Take 2 capsules (80 mg total) by mouth daily. 05/26/20 22 Active hydrOXYzine (ATARAX) 25 MG tablet Take 1 tablet (25 mg total) by mouth 3 (three) times daily as needed. 06/13/20 22 Active levETIRAcetam (KEPPRA) 500 MG tablet 09/02/20 22 Active omeprazole (PRILOSEC) 40 MG capsule Take 1 capsule (40 mg total) by mouth daily. 11/30/19 23 Active topiramate (TOPAMAX) 200 MG tablet Take 1 tablet (200 mg total) by mouth 2 (two) times daily. 07/11/20 22 Active famotidine (PEPCID) 20 MG tabletIndications: Gastroesophageal reflux disease, unspecified whether esophagitis present,Pharyngoes ophageal dysphagia Take 1 tablet (20 mg total) by mouth 2 (two) times daily as needed. 60 tablet 3 01/01/20 23 Active Na sulfate-K sulfate-Mg sulfate (SUPREP BOWEL PREP KIT) 17.5-3.13-1.6 GM/177ML SolutionIndication s:Chronic diarrhea,Generaliz ed abdominal pain,Iron deficiency anemia, unspecified iron deficiency anemia type Take 177 mLs by mouth every 12 (twelve) hours. Take as directed by instruction sheet. 354 mL 03/30/20 23 Active dicyclomine (BENTYL) 20 MG tablet Take 1 tablet (20 mg total) by mouth every 6 (six) hours as needed. 20 tablet 04/23/20 25 Active HYDROcodone-acetam inophen (NORCO) 5-325 MG tabletIndications: Acute Pain < 7 Day Supply,Abdominal pain Take 1 tablet by mouth every 6 (six) hours as needed. Indications: Acute Pain < 7 Day Supply, Abdominal pain 21 tablet 05/05/20 25 Active ondansetron (ZOFRAN-ODT) 4 MG disintegrating tablet Take 1 tablet (4 mg total) by mouth every 8 (eight) hours as needed for Nausea. 20 tablet 05/05/20 25 Active Active Problems Problem Noted Date Diagnosed Date Iron deficiency anemia, unsp ecified iron deficiency anemia type 01/01/2023 Overview (01/01/2023): Added automatically from request for surgery [id number] Chronic diarrhea 01/01/2023 Overview (01/01/2023): Added automatically from request for surgery [id number] Gastroesophageal reflux dise ase, unspecified whether esophagitis present 01/01/2023 Overview (01/01/2023): Added automatically from request for surgery [id number] Pharyngoesophageal dysphagia 01/01/2023 Overview (01/01/2023): Added automatically from request for surgery [id number] Generalized abdominal pain 01/01/2023 Overview (01/01/2023): Added automatically from request for surgery [id number] History of melena 01/01/2023 Overview (01/01/2023): Added automatically from request for surgery [id number] Encounters Date Type Department Care Team Description 05/05/2025 6:19 PM CDT - 05/05/2025 10:[address] [facility] [place] [address] Ever Gasca PA Buggs, Mablene, MD Abdominal Pain Discharge Disposition: Home or Self Care (Routine Discharge) 05/05/2025 Travel 04/23/2025 12:49 AM CDT - 04/23/2025 2:[address] [facility] [place] [address] Merrick Luna MD Abdominal Pain Discharge Disposition: Home or Self Care (Routine Discharge) 04/23/2025 Travel from Last 3 Months Family History Medical History Relation Comments Irritable bowel syndrome Mother Esophageal cancer Paternal Grandmother Relation Status Comments Father Alive Mother Alive Paternal Grandmother Social History Tobacco Use Types Packs/Day Years Used Date Smoking Tobacco: Never Smokeless Tobacco: Never Tobacco Cessation:Counseling Given: Not Answered Alcohol Use Standard Drinks/Week Comments Not Currently 0 (1 standard drink = 0.6 oz pur e alcohol) PHQ-2 Answer Date Recorded Patient Health Questionnaire-2 Score 0 12/31/2022 Comments No Sex and Gender Information Value Date Recorded Sex Assigned at Female 10/29/2024 9:38 PM OPERATIONS TECHNICIAN Legal Sex Female 3:44 PM OPERATIONS TECHNICIAN Gender Identity Not on file Sexual Orientation Not on file Last Filed Vital Signs Vital Sign Reading Time Taken Comments Blood Pressure 106/65 05/05/2025 9:30 PM CDT Pulse 76 05/05/2025 10:00 PM CDT Temperature 36.8 C (98.3 F) 05/05/2025 5:21 PM CDT Respiratory Rate 17 05/05/2025 10:0 0 PM CDT Oxygen Saturation 100% 05/05/2025 9:30 PM CDT Inhaled Oxygen Concentration - - Weight 120.7 kg (266 lb 1.5 oz) 05/05/2025 5:21 PM CDT Height 162.6 cm (5' 4) 05/05/2025 5:21 PM CDT Body Mass Index 45.68 05/05/2025 5:21 PM CDT Plan of Treatment Health Maintenance Due Date Last Done Comments Cervical Cancer Screening Pap Smear (Age 21 to 29) Every 3 Years 2000 Cervical Cancer Screening 2000 Annual Physical 2003 Hepatitis C 2018 COVID-19 Vaccine ( season) 2025 03/14/2021, 02/12/2021 DTaP, Tdap and Td Vaccines (8 - Td or Tdap) 11/21/2031 11/21/2021, 04/27/2012, 05/13/2006, Additional history exists HPV Vaccines Completed 05/24/2015, 01/2013, 04/27/2012 Meningococcal Vaccine Completed 05/14/2017, 012 Hepatitis B Vaccines Completed 12/10/2021, 10/08/2001, 2000, Additional history exists Meningococcal B Vaccine Aged Out No l onger eligible based on patient's age to complete this topic Pneumococcal Vaccine: Pediatrics (0 to 5 Years) and At-Risk Patients (6 to 49 Years) Aged Out No longer eligible based on patient's age to complete this topic RSV Immunizations Under 20 Months Aged Out No longer eligible based on patient's age to complete this topic Procedures Procedure Name Priority Date/Time Associated Diagnosis Comments CT ABD+PEL W CON STAT 05/05/2025 8:38 PM CDT ECG 12-LEAD STAT 05/05/2025 7:35 PM CDT HC URINALYSIS AUTO W/O MICRO STAT 05/05/2025 6:41 PM CDT CHORIONIC GONADOTROPIN HCG QL STAT 05/05/2025 6:41 PM CDT LIPASE STAT 05/05/2025 6:41 PM CDT COMPREHENSIVE METABOLIC PANEL STAT 05/05/2025 6:41 PM CDT CBC W/DIFF AUTOMATED STAT 05/05/2025 6:[address] ABD+PEL W CON STAT 04/23/2025 2:02 AM CDT CHORIONIC GONADOTROPIN HCG QL STAT 04/23/2025 1:08 AM CDT COMPREHENSIVE METABOLIC PANEL STAT 04/23/2025 1:08 AM CDT CBC W/DIFF AUTOMATED STAT 04/23/2025 1:08 AM CDT from Last 3 Months Results * CT ABD+PEL W CON (05/05/2025 8:38 PM CDT) Only the most recent of2 resultswithin the time period is included. Anatomical Region Laterality Modality Abdomen Computed Tomogra phy 05/05/2025 8:50 PM CDT Impressions 05/05/2025 8:50 PM CDT IMPRESSION: 1. No acute abnormality identified in the abdomen or pelvis. 2. Normal appearing appendix. 3. Benign pancreatic lipomatosis, advanced for patient age. Referred By: Interpreted By: Bolivar Stubbs MD, 05/05/2025 8:50 PM Narrative 05/05/2025 8:50 PM CDT [facility] [address], [place] [address] EXAM: CT ABD+PEL W CON INDICATION: Right lower quadrant, right flank pain COMPARISON: CT abdomen/pelvis, 23 Apr 2025 TECHNIQUE: CT images of the abdomen/pelvis were obtained following the administration of IV contrast. Radiation dose reduction technique utilized. FINDINGS: Limited visualization of the lower thorax reveals no acute abnormality. Normal size liver. No suspicious hepatic lesion. Some scattered hypoattenuating cystic foci within the hepatic parenchyma likely represent benign simple cysts or benign hemangiomata; no follow-up is recommended for these findings. Gallbladder within normal limits. Hepatic veins, main portal vein, splenic vein, SMV, and SMA enhance. No retroperitoneal lymphadenopathy. No evidence of bowel obstruction or acute inflammation. Normal appearing appendix. No free gas in the abdomen or pelvis. No mesenteric lymphadenopathy. Stomach and duodenum within normal limits. Normal size spleen. Incidental note of several small splenules. Benign pancreatic lipomatosis, advanced for patient age. Adrenal glands within normal limits. Kidneys enhance symmetrically. No hydronephrosis or hydroureter. Urinary bladder within normal limits for degree of distention. Uterus and adnexa within normal limits. Dominant follicle left ovary. Incidental note of benign pelvic phleboliths. No pelvic lymphadenopathy or significant free fluid. Mild chronic degenerative changes of the sacroiliac joints. Mild chronic multilevel degenerative changes of the spine. 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 Visualized body wall exhibits no acute abnormality. Tiny fat-containing umbilical hernia without evidence of complication. Procedure Note Bolivar Stubbs MD - 05/05/[address] [address] EXAM: CT ABD+PEL W CON INDICATION: Right lower quadrant, right flank pain COMPARISON: CT abdomen/pelvis, 23 Apr 2025 TECHNIQUE: CT images of the abdomen/pelvis were obtained following theadministration of IV contrast. Radiation dose reduction techniqueutilized. FINDINGS: Limited visualization of the lower thorax reveals no acute abnormality. Normal size liver. No suspicious hepatic lesion. Some scatteredhypoattenuating cystic foci within the hepatic parenchyma likely representbenign simple cysts or benign hemangiomata; no follow-up is recommendedfor these findings. Gallbladder within normal limits. Hepatic veins, main portal vein, splenic vein, SMV, and SMA enhance. Noretroperitoneal lymphadenopathy. No evidence of bowel obstruction or acute inflammation. Normal appearingappendix. No free gas in the abdomen or pelvis. No mesentericlymphadenopathy. Stomach and duodenum within normal limits. Normal size spleen. Incidentalnote of several small splenules. Benign pancreatic lipomatosis, advancedfor patient age. Adrenal glands within normal limits. Kidneys enhance symmetrically. No hydronephrosis or hydroureter. Urinary bladder within normal limits for degree of distention. Uterus andadnexa within normal limits. Dominant follicle left ovary. Incidental noteof benign pelvic phleboliths. No pelvic lymphadenopathy or significantfree fluid. Mild chronic degenerative changes of the sacroiliac joints. Mild chronic multilevel degenerative changes of the spine. Incidental noteof a T11 spinous cleft. Visualized body wall exhibits no acute abnormality. Tiny fat-containing umbilical hernia without evidence of complication. IMPRESSION: 1. No acute abnormality identified in the abdomen or pelvis. 2. Normal appearing appendix. 3. Benign pancreatic lipomatosis, advanced for patient age. 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: : 2000 Requested By: EVER GASCA Order Number: [id number] Reading MD: Eugene Snell Measurements Intervals [place] Rate: 62 P: -7 TX: 136 QRS: 104 QRSD: 86 T: -19 QT: 417 QTc: 424 Interpretive Statements SINUS RHYTHM RIGHT AXIS DEVIATION [QRS AXIS > 100] LOW QRS VOLTAGE IN PRECORDIAL LEADS [QRS DEFLECTION < 1.0 mV IN CHEST LEADS] NONSPECIFIC T-WAVE ABNORMALITY No previous ECG available for comparison Procedure Note Eugene Snell MD - 05/05/2025 [place] [address], [place] Test Date: 2025-05-05 Pat Name: JORDY COCHRAN Department: 41 Room: EXAM14 Gender: Female 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: : 2000 Requested By: EVER GASCA Order Number: [id number] Reading MD: Eugene Snell Measurements Intervals [place] Rate: 62 P: -7 TX: 136 QRS: 104 QRSD: 86 T: -19 QT: 417 QTc: 424 Interpretive Statements SINUS RHYTHM RIGHT AXIS DEVIATION [QRS AXIS > 100] LOW QRS VOLTAGE IN PRECORDIAL LEADS [QRS DEFLECTION < 1.0 mV IN CHESTLEADS] NONSPECIFIC T-WAVE ABNORMALITY No previous ECG available for comparison us Ever SIMPSON ECG ORDERABLES Final Resu lt [facility] RAD * URINALYSIS (05/05/2025 6:41 PM CDT) SPECIMEN TYPE URINE CLEAN CATCH 05/05/2025 6:38 PM CDT [facility] COLOR (U) COLORLESS 05/05/2025 7:17 PM CDT [facility] TRANSPARENCY CLEAR 05/05/2025 7:17 PM CDT [facility] SPECIFIC GRAVITY (U) 1.008 1.001 - 1.030 05/05/2025 7:17 PM CDT [facility] U PH 6.5 5.0 - 9.0 05/05/2025 7:17 PM CDT [facility] LEUKOCYTES (U) NEGATIVE NEGATIVE 05/05/2025 7:17 PM CDT [facility] NITRITES NEGATIVE NEGATIVE 05/05/2025 7:17 PM CDT [facility] PROTEIN RANDOM (U) NEGATIVE <30 MG/DL 05/05/2025 7:17 PM CDT [facility] GLUCOSE (U) NORMAL NORMAL MG/DL 05/05/2025 7:17 PM CDT [facility] KETONES MG/DL (U) NEGATIVE NEGATIVE MG/DL 05/05/2025 7:17 PM CDT [facility] UROBILINOGEN NORMAL NORMAL MG/DL 05/05/2025 7:17 PM CDT [facility] BILIRUBIN (U) NEGATIVE NEGATIVE MG/DL 05/05/2025 7:17 PM CDT [facility] BLOOD (U) NEGATIVE NEGATIVE 05/05/2025 7:17 PM CDT [facility] URINE SPECIMEN OBTAINED BY CLEAN CATCH PROCEDURE / Unknown 05/05/2025 6:41 PM CDT Gayatri SIMPSON URINE ORDERABLES Final Result [facility] [address] [id number], [place] [phone] * (ABNORMAL) COMPREHENSIVE METABOLIC PANEL (05/05/2025 6:41 PM CDT) Only the most recent of2 resultswithin the time period is included. GLUCOSE 92 70 - 99 MG/DL 05/05/2025 7:29 PM CDT [facility] BUN 11 7 - 18 MG/DL 05/05/2025 7:29 PM CDT [facility] CREATININE S/P/B 0.87 0.55 - 1.02 MG/DL 05/05/2025 7:29 PM CDT [facility] SODIUM S/P/B 139 136 - 145 MMOL/L 05/05/2025 7:29 PM CDT [facility] POTASSIUM S/P/B 3.9 3.5 - 5.1 MMOL/L 05/05/2025 7:29 PM CDT [facility] CHLORIDE S/P/B 110 97 - 115 MMOL/L 05/05/2025 7:29 PM T [facility] CO2 20.3(L) 21 - 32 MMOL/L 05/05/2025 7:29 PM CDT [facility] CALCIUM S/P/B 9.3 8.5 - 10.1 MG/DL 05/05/2025 7:29 PM CDT [facility] BILIRUBIN TOTAL S/P/B 0.3 0.2 - 1.2 MG/DL 05/05/2025 7:29 PM T [facility] Comment: THIS ASSAY IS NOT RECOMMENDED FOR PATIENTS UNDERGOING TREATMENT WITH ELTROMBOPAG DUE TO THE POTENTIAL FOR FALSELY ELEVATED RESULTS. TOTAL PROTEIN S/P/B 7.5 6.4 - 8.2 G/DL 05/05/2025 7:29 PM CDT [facility] ALBUMIN S/P/B 3.9 3.4 - 5.0 G/DL 05/05/2025 7:29 PM T [facility] AST 11(L) 15 - 37 U/L 05/05/2025 7:29 PM T [facility] ALT 23 14 - 55 U/L 05/05/2025 7:29 PM T [facility] ALKALINE PHOSPHATASE S/P/B 44(L) 50 - 136 U/L 05/05/2025 7:29 PM T [facility] ANION GAP 8.7 2 - 10 MMOL/L 05/05/2025 7:29 PM T [facility] BUN CREATININE RATIO 12.6 6 - 26 05/05/2025 7:29 PM T [facility] A/G RATIO 1.1 1.0 - 2.0 RATIO 05/05/2025 7:29 PM CDT [facility] GFR ESTIMATE >90 >90 ML/MIN/1.7 3 M2 05/05/2025 7:29 PM CDT [facility] Comment: NOTE: eGFR is not calculated for patients <18 years of age or gender unknown. This is an estimated GFR calculation using the new CKD EPI creatinine equation without race and so does not require a correction factor for race. This estimated GFR should not be used for calculating drug doses. 05/05/2025 6:41 PM CDT [facility] Final Result [facility] [address] [place] [address], [place] [phone] * Qualitative HCG (05/05/2025 6:41 PM CDT) Only the most recent of2 resultswithin the time period is included. PREG SCREEN-SERUM NEGATIVE 05/05/2025 7:30 PM CDT [facility] 05/05/2025 6:41 PM CDT [facility] Final Result [facility] [address] [place] [address], [place] [phone] * (ABNORMAL) CBC W/DIFF AUTOMATED (05/05/2025 6:41 PM CDT) Only the most recent of2 resultswithin the time period is included. WBC 6.34 4.5 - 11.0 x10'3/uL 05/05/2025 7:14 PM CDT [facility] RBC 5.11 4.20 - 5.40 x10'6/uL 05/05/2025 7:14 PM CDT [facility] HGB 14.0 12.0 - 16.0 G/DL 05/05/2025 7:14 PM CDT [facility] HCT 41.1 38.0 - 48.0 % 05/05/2025 7:14 PM CDT [facility] MCV 80.4(L) 81.0 - 99.0 FL 05/05/2025 7:14 PM CDT [facility] MCH 27.4 27.0 - 31.0 PG 05/05/2025 7:14 PM CDT [facility] MCHC 34.1 32.0 - 36.0 G/DL 05/05/2025 7:14 PM CDT [facility] RDW 13.9 11.5 - 14.5 % 05/05/2025 7:14 PM CDT [facility] PLT 301 130 - 400 x10'3/uL 05/05/2025 7:14 PM CDT [facility] MPV 10.3 9.3 - 12.2 FL 05/05/2025 7:14 PM CDT [facility] DIFFERENTIAL TYPE AUTOMATED DIFFERENTIAL 05/05/2025 7:14 PM CDT [facility] NEUTROPHILS % 55.3 % 05/05/2025 7:14 PM CDT [facility] LYMPHOCYTES % 36.3 % 05/05/2025 7:14 PM CDT [facility] MONOCYTES % 6.5 % 05/05/2025 7:14 PM CDT [facility] EOSINOPHILS 0.5 % 05/05/2025 7:14 PM CDT [facility] BASOPHILS 1.1 % 05/05/2025 7:14 PM CDT [facility] IMMATURE GRANS % 0.3 % 05/05/20 7:14 PM CDT [facility] ABS. NEUTROPHILS 3.51 1.80 - 7.70 x10'3/uL 05/05/2025 7:14 PM CDT [facility] ABS. LYMPHOCYTES 2.30 1.00 - 4.80 x10'3/uL 05/05/2025 7:14 PM CDT [facility] ABS. MONOCYTES 0.41 0.24 - 0.86 x10'3/uL 05/05/2025 7:14 PM CDT [facility] ABS. EOSINOPHILS 0.03(L) 0.04 - 0.36 x10'3/uL 05/05/2025 7:14 PM CDT [facility] ABS. BASOPHILS 0.07 0.01 - 0.08 x10'3/uL 05/05/2025 7:14 PM CDT [facility] ABS. IMMATURE GRANULOCYTES 0.02 0.00 - 0.49 x10'3/uL 05/05/2025 7:14 PM CDT [facility] 05/05/2025 6:41 PM CDT us [facility] Final Result Performing Organization Address [place]/ZIP Co de Phone Number [facility] [address] [place] [address], [place] [phone] * LIPASE (05/05/2025 6:41 PM CDT) LIPASE 30 13 - 75 UNITS/L 05/05/2025 7:29 PM CDT [facility] 05/05/2025 6:41 PM CDT us [facility] Final Result [facility] [address] [place] [address], from Last 3 Months Insurance [facility] MEDICA[facility] Care Teams Api Product Manager Relationship Specialty Start Date End Date Daily Grant MD [address] [place] [address] [place] [address] PCP - General FAMILY PRACTICE 11/09/21
[2025-06-16 10:20] LABS: EDCOVIDSCREEN Negative (Negative); EDINFLUASCREEN Negative (Negative); EDINFLUBSCREEN Negative (Negative); EDSTREPNEGPOS1 Negative (Negative)
== END 2025-06-16 10:35 | disposition home or self-care (01) ==
PROVIDERS: Emergency Provider Nurse Practitioner Family
DX: B34.9 Viral infection, unspecified (principal); Z20.822 Contact with and (suspected) exposure to COVID-19
CPT/HCPCS: 87081; 87426; 87804; 87880; 99213; G0463

== ENCOUNTER 2025-08-08 18:22 | Emergency (ER) | payer OTHER, MEDICAID, SELFPAY ==
--- NOTE | ~2025-08-08 | CT_ITS ---
CT HEAD NON-CONTRAST Clinical History: fall, head in lobby Comparison: None Technique: Unenhanced axial images skull base to vertex Coronal, sagittal reformats CT images acquired with automatic exposure control for dose reduction DLP: 605 mGy-cm Findings: Residual contrast from CTA chest. Sulci, ventricles: Unremarkable. No intracerebral hemorrhage. No evidence acute territorial infarct. No mass effect, midline shift. Bony calvarium intact. Visualized paranasal sinuses: Clear. Mastoid air cells: Clear. IMPRESSION: 1. No acute intracranial findings. Reviewed, dictated and finalized at location R. D PROPELLANT PROCESSOR
--- NOTE | ~2025-08-08 | CT_ITS ---
CTA CHEST CT ABDOMEN PELVIS CLINICAL HISTORY: elevated dimer, chest pain, abdominal pain . COMPARISON: Chest x-rays today TECHNIQUE: Helical CT performed from thoracic inlet to symphysis pubis 100 mL Omnipaque 350 Coronal, sagittal reformats. Multiplanar MIPS CT images acquired with automatic exposure control for dose reduction DLP: 2219 mGy-cm FINDINGS: CHEST- Thoracic Aorta: No dissection. No aneurysm. Pulmonary arteries: Normal caliber. No large central PE. Suboptimal opacification for distal evaluation. Lungs/Pleura: Clear. Heart: Unremarkable. Tracheobronchial tree: Patent. Nodes: No enlarged nodes. Bones: No acute bony abnormality. Soft tissues: Unremarkable. ABDOMEN/PELVIS- Liver: Tiny probable cyst segment 4A. Gallbladder: Unremarkable. Spleen: Unremarkable. Pancreas: Unremarkable. Adrenal glands: Unremarkable. Kidneys: Right kidney- No hydronephrosis. No renal stones. Left kidney- No hydronephrosis. No renal stones. Distal esophagus/stomach: Small sliding hiatal hernia. Small bowel loops: Normal caliber and wall thickness. Colon: Diverticula. Normal caliber and wall thickness. Normal RLQ appendix. Nodes: No enlarged nodes. Peritoneum: No ascites. No free air. Urinary bladder: Unremarkable. Uterus: Unremarkable. Adnexa: No masses.. Bones: No acute bony abnormality. L5 spondylolysis. Soft tissues: Unremarkable. Abdominal aorta: Unremarkable. IVC: Unremarkable. Main portal vein, SMV: Patent. IMPRESSION: CHEST- 1. No acute cardiopulmonary findings. ABDOMEN/PELVIS- 1. No acute abdominopelvic findings. Reviewed, dictated and finalized at location R. 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
--- NOTE | ~2025-08-08 | XR_ITS ---
EXAMINATION: XR chest 2V 08/08/2025 21:51 INDICATION: Upper abdominal pain and lower chest pain PROCEDURE: 2 view chest COMPARISON: 08/15/2024 FINDINGS: The lungs are clear. The cardiomediastinal silhouette is within normal limits. There are no pleural effusions. There is no pneumothorax suspected. IMPRESSION: 1: NO ACUTE CARDIOPULMONARY DISEASE. Reviewed, dictated and finalized at location O. 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
--- NOTE | 2025-08-08 18:23 | ECG_ITS ---
Test Date: 2025-08-08 18:29:49 Measurements Intervals [place] Rate: 101 P: 36 MS: 127 QRS: 49 QRSD: 78 T: -3 QT: 320 QTc: 416 Interpretive Statements SINUS TACHYCARDIA NONSPECIFIC T-WAVE ABNORMALITY ABNORMAL RHYTHM ECG No previous ECG available for comparison Electronically Signed On 08-08-2025 21:28:19 TRAVELING ENGINEER by Prabha Freire M.D.
[2025-08-08 18:24] VITALS: BP 131/90; PULSE 80; RESP 18; TEMP 36.8; O2SAT 99
--- OUTSIDE RECORDS SUMMARY | 2025-08-08 18:25 | XMS_ITS | Encounter Summary ---
Author Organization [facility] Address [address] [place] [address] Phone Care Team Providers Care Skin Care Instructor Name Role Phone Daily Grant MD Primary Care Provider + Angel Conner MD Unavailable [phone] Ally Richter STRAPPER OPERATOR, HOUSEPERSON Unavailable Roosevelt Mas STRAPPER OPERATOR, HOUSEPERSON Unavailable [phone] Encounter Details Date Type Department Care Team (Late st Contact Info) Description 11/01/2024 Behavioral [facility] [address] [place] [phone] Vangie Levy, [facility] [address] [place] [address] Social History Tobacco Use Types Packs/Day Years [...] Department Care Team (Latest Contact Info) Description 09/18/2025 10:30 AM 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 PROFESSOR OF 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 Outpatient Clinic Visit [facility] [address] [place] [address] Vangie Levy LCSW [address] [place] [address] Discharge Disposition: Discharged to home or Selfcare [...] Ready to change Department associated with goal: [facility] Steps to achieve [...] on filedocumented in this encounter Care Teams Skin Care Instructor Relationship Specialty Start Date End Date Daily Grant MD [address] [place] [address] [address] PCP - General Family Medicine 06/30/22 Angel Conner MD [address] [place] [phone] Consulting Physician Oncology 06/30/22 Ally Richter APRN, HOUSEPERSON [address] [place] [address] Nurse Practitioner Advanced Practice Nurse 07/22/24 Roosevelt Mas APRN, HOUSEPERSON [address] [place] [address] Nurse Practitioner Advanced Practice Nurse 08/12/24 documented as of this encounter
--- OUTSIDE RECORDS SUMMARY | 2025-08-08 18:25 | XMS_ITS | Clinical Summary ---
Author Organization [facility] Address [address], [address] [place] [address] Phone Care Team Providers Care Specialty Therapist Name Role Phone Daily Grant MD Primary Care Provider + Angel Conner MD Unavailable [phone] Ally Richter APRN, BEAD INSPECTOR Unavailable Roosevelt Mas APRN, BEAD INSPECTOR Unavailable Allergies No known active allergies Medications topiramate (TOPAMAX) 200 MG Tablet Take 200 mg by mouth 2 times daily. 2 Active hydrOXYzine (ATARAX) 25 MG Tablet TAKE 1 TABLET BY MOUTH THREE TIMES DAILY NEEDED 2 Active omeprazole (PriLOSEC) 40 MG CAPSULE DELAYED RELEASE Take 1 Capsule by mouth daily. 0 Active budesonide-formo terol fumarate (SYMBICORT) 80-4.5 MCG/ACT Aerosol take 2 Puffs by inhalation. 2 Active albuterol 108 (90 Base) MCG/ACT Aerosol Solution take 2 Puffs by inhalation. 8 Active ferrous sulfate 325 (65 Fe) MG TabletIndication s:Iron deficiency anemia, unspecified iron deficiency anemia type [...] 5 Active ondansetron (ZOFRAN-ODT) 4 MG TABLET DISPERSIBLEIndic ations:Nausea and vomiting, unspecified vomiting type Take 1 Tablet by mouth every 8 hours as needed for Nausea - 1st line. 30 Tablet 1 5 Active famotidine (PEPCID) 20 MG TabletIndication s:Chronic RUQ pain,Gastroesoph ageal reflux disease, unspecified whether esophagitis present,Nausea and vomiting, unspecified vomiting type Take 1 Tablet by mouth 2 times daily. 180 Tablet 1 5 Active folic acid (FOLVITE) 1 MG Tablet Take 1 Tablet by mouth daily. 30 Tablet 5 Active Active Problems Problem Noted Date Diagnosed Date GEGE (generalized anxiety disorder) 01/05/2024 Depression 01/05/2024 Vitamin D deficiency 01/28/2023 Iron deficiency anemia 07/31/2022 Encounters Date Type Department Care Team Description 08/07/2025 Telephone [facility] [address] [phone] Angel Conner MD 06/06/2025 10:30 AM CDT [facility] [address] [place] [phone] Vangie Levy, ELECTRONICS WARFARE TECHNICIAN GEGE (generalized anxiety disorder) (Primary Dx); ADHD Discharge Disposition: Discharged to home or Selfcare 06/06/2025 Travel 05/29/2025 Results Follow-Up [facility] [address] [phone] Mica Taylor APRN, CNP IRON,TRANSFERN,CA LC.TIBC,%SAT, FOLIC ACID (FOLATE), VITAMIN B12, Additional followed-up results: 8 05/26/2025 11:00 AM CDT [facility] [address] [place] [phone] Ally Richter APRN, BEAD INSPECTOR Chronic RUQ pain (Primary Dx); Abdominal bloating; Gastroesophageal reflux disease, unspecified whether esophagitis present; Nausea and vomiting, unspecified vomiting type Discharge Disposition: Discharged to home or Selfcare 05/25/2025 12:30 PM CDT [facility] [address] [place] [phone] Vangie Levy, ELECTRONICS WARFARE TECHNICIAN GEGE (generalized anxiety disorder) (Primary Dx); ADHD Discharge Disposition: Discharged to home or Selfcare 05/25/2025 Travel from Last 3 Months Immunizations Immunization [...] (Latest Contact Info) Description 09/18/2025 10:30 AM COLLECTIONS REP Outpatient Clinic Visit [facility] [address] [place] [address] Vangie Levy, ELECTRONICS WARFARE TECHNICIAN [address] [place] [address] Discharge Disposition: Discharged to home or Selfcare Health Maintenance Due Date Last Done Comments Hepatitis C Virus (HCV) Screening 2000 Pap Smear 2021 SARS-COV-2 Immunization ( season) 2025 03/14/2021, 02/12/2021 Respiratory Syncytial Virus (RSV) Immunization (Adult) (1 - 1-dose 75+ series) 2075 Human Papillomavirus (HPV) Immunization Completed 05/24/2015, 01/06/2013, 04/27/2012 Meningococcal Immunization (ACWY) Completed 05/14/2017, 04/27/2012 DTaP/Tdap/Td Immunization Discontinued 2021, 04/27/2012, 05/13/2006, Additional history exists TdaP Immunization Completed 11/21/2021, 04/27/2012 Hepatitis B Immunization Completed 022, 10/08/2001, 2000, Additional history exists Influenza Immunization Completed 5, 06/16/2024, 07/17/2023 Pneumococcal Immunization Combined Aged Out No longer eligible based on patient's age to complete this topic Rotavirus Immunization Aged Out No lo nger eligible based on patient's age to complete this topic Goals Goal Patient Goal Type Associated Problems Recent Progress Patient-Stated? Author decrease anxiety and depression symptoms Behavioral Health Worsening( 10:50 AM CDT) Yes Vangie Levy, ELECTRONICS WARFARE TECHNICIAN Note: Goal/Objective: Decrease symptoms and increase coping skills. Anticipated Time Frame for Goal Completion: 6 months Goal Reviewed with: patient Readiness to change: Ready to change Department associated with goal: [facility] Steps to achieve goal: [...] >800.0 >=200.0 mcg/g 05/29/2025 12:13 PM CDT [facility] Comment: >200 mcg/g Normal 100 - <200 mcg/g Moderate Pancreatic Insufficiency < 100 mcg/g Severe Pancreatic Insufficiency Stool Non-Phlebotomy Collection / Unknown 05/27/2025 1:56 PM CDT 05/27/2025 2:28 PM CDT us Ally Richter FILBERT GROWER, BEAD INSPECTOR IMMUNOLOGY ORDERA BLES Final Result [facility] [address] [place] [address], [place] * (ABNORMAL) IRON,TRANSFERN,CALC.TIBC,%SAT (05/26/2025 12:04 PM CDT) IRON 44 25 - 156 mcg/dL 05/26/2025 1:37 PM CDT [facility] TRANSFERRIN 198 180 - 382 mg/dL 05/26/2025 1:37 PM CDT [facility] TIBC, CALCULATED 248(L) 265 - 497 mcg/dL 05/26/2025 1:37 PM CDT [facility] % SATURATION * 18 15 - 62 % 05/26/2025 1:37 PM CDT [facility] Blood Venipuncture / Unknown 05/26/2025 12:04 PM CDT 05/26/2025 12:21 PM CDT Mica Taylor APRN, CNP CHEMISTRY ORDERABLE S Final Result [facility] [address] [place] [address] * (ABNORMAL) FOOD ALLERGY PROFILE (05/26/2025 12:04 PM CDT) IGE 172 <=214 kU/L 05/31/2025 2:28 PM CDT [facility] FOOD MILK (COW) 1.79(H) <0.35 kU/L 2:28 PM CDT [facility] Comment:Component testing av ailable upon request. Serum held for up to seven days. Call Laboratory if further testing is desired. FOOD CASHEW NUT 0.15 <0.35 kU/L 2:28 PM CDT [facility] FOOD WHEAT 0.53(H) <0.35 kU/L 05/31/2025 2:28 PM CDT [facility] Food Tuna IgE 05/31/2025 2:28 PM CDT [facility] Comment:Quantity not suffici ent FOOD PEANUT <0.10 <0.35 kU/L 05/31/2025 2:28 PM CDT [facility] FOOD SOYBEAN <0.10 <0.35 kU/L 05/31/2025 2:28 PM CDT [facility] FOOD SALMON <0.10 <0.35 kU/L 05/31/2025 2:28 PM CDT [facility] FOOD CODFISH <0.10 <0.35 kU/L 05/31/2025 2:28 PM CDT [facility] FOOD SOTERO NUT <0.10 <0.35 kU/L 05/31/2025 2:28 PM CDT [facility] FOOD SESAME <0.10 <0.35 kU/L 05/31/2025 2:28 PM CDT [facility] FOOD WALNUT <0.10 <0.35 kU/L 05/31/2025 2:28 PM CDT [facility] FOOD SHRIMP <0.10 <0.35 kU/L 05/31/2025 2:28 PM CDT [facility] FOOD SCALLOP <0.10 <0.35 kU/L 05/31/2025 2:28 PM CDT [facility] FOOD EGG WHITE 0.58(H) <0.35 kU/L 05/31/2025 2:28 PM CDT [facility] Comment:Component testing av ailable upon request. Serum held for up to seven days. Call Laboratory if further testing is desired. FOOD ALMOND NUT IGE <0.10 <0.35 kU/L 05/31/2025 2:28 PM CDT [facility] Blood Venipuncture / Unknown 05/26/2025 12:04 PM CDT 05/26/2025 12:22 PM CDT Narrative [facility] - 05/31/2025 2:28 PM CDT IgE Class kU/L Level of IgE AB 0 <0.35 Absent/undetectable 1 0.35-0.70 Low Level 2 0.71-3.50 Moderate Level 3 3.51-17.50 High Level 4 17.51-50.00 Very High Level 5 50.01-100.00 Very High Level 6 >100.00 Very High Level Ally Estebanf FILBERT GROWER, BEAD INSPECTOR CHEMISTRY ORDERAB LES Final Result Performing Organization Address City/[facility]/ZIP Co de Phone Number [facility] [address] [place] [address], [place] * IMMUNOGLOBULIN A (IGA) - CELIAC (05/26/2025 12:04 PM CDT) IMMUNOGLOBULIN A 192 65 - 421 mg/dL 05/30/2025 5:53 PM CDT [facility] Blood Venipuncture / Unknown 05/26/2025 12:04 PM CDT 05/26/2025 12:21 PM CDT us Ally Richter APRN, CNP IMMUNOLOGY ORDERA BLES Final Result Performing Organization Address [facility] Co de Phone Number [facility] [address] [place] [address], [place] * GLIADIN IGA ANTIBODY - CELIAC (05/26/2025 12:04 PM CDT) DEAMIDATED GLIADIN IGA 0.2 <15.0 U/mL 05/30/2025 1:22 PM CDT [facility] Blood Venipuncture / Unknown 05/26/2025 12:04 PM CDT 05/26/2025 12:21 PM CDT Narrative [facility] - 05/30/2025 1:22 PM CDT Antibody testing was performed by multiplex flow immunoassay on the TermScout platform. us Ally Richter APRN, CNP IMMUNOLOGY ORDERA BLES Final Result Performing Organization Address City/[facility] Co de Phone Number [facility] [address] [place] [address], [place] * TISSUE TRANSGLUTAMINASE IGA - CELIAC (05/26/2025 12:04 PM CDT) TTG IGA <0.5 <15.0 U/mL 05/30/2025 1:22 PM CDT [facility] Blood Venipuncture / Unknown 05/26/2025 12:04 PM CDT 05/26/2025 12:21 PM CDT Narrative [facility] - 05/30/2025 1:22 PM CDT Antibody testing was performed by multiplex flow immunoassay on the TermScout platform. Ally Richter FILBERT GROWER, BEAD INSPECTOR IMMUNOLOGY ORDERA BLES Final Result [facility] [address] [place] [address], * CBC WITH AUTO DIFFERENTIAL (05/26/2025 12:04 PM CDT) WBC 5.40 4.00 - 12.00 10(3)/mcL 05/26/2025 12:[address] [facility] RBC 4.81 3.80 - 5.30 10(6)/mcL 05/26/2025 12:[address] [facility] HEMOGLOBIN (HGB) 13.5 12.0 - 15.8 g/dL 05/26/2025 12:[address] [facility] HEMATOCRIT (HCT) 40.4 36.0 - 47.0 % 05/26/2025 12:[address] [facility] MCV 84.0 82.0 - 96.0 fL 05/26/2025 12:[address] [facility] MCH 28.1 26.0 - 34.0 pg 05/26/2025 12:[address] [facility] MCHC 33.4 31.0 - 36.0 g/dL 05/26/2025 12:[address] [facility] PLATELET COUNT 246 140 - 440 10(3)/mcL 05/26/2025 12:[address] [facility] RDW 13.2 11.8 - 15.5 % 05/26/2025 12:[address] [facility] MPV 10.1 9.7 - 12.4 fL 05/26/2025 12:[address] [facility] NEUTROPHILS 52.5 47.0 - 73.0 % 05/26/2025 12:29 PM CDT [facility] LYMPHOCYTES 39.4 18.0 - 42.0 % 05/26/2025 12:29 PM CDT [facility] MONOCYTES 6.3 4.0 - 12.0 % 05/26/2025 12:29 PM CDT [facility] EOSINOPHILS 0.7 0.0 - 5.0 % 05/26/2025 12:29 PM CDT [facility] BASOPHILS 0.7 0.0 - 1.0 % 05/26/2025 12:29 PM CDT [facility] IMMATURE GRANULOCYTE 0.4 0.0 - 0.4 % 05/26/2025 12:29 PM CDT [facility] ABSOLUTE NEUTROPHILS 2.83 1.60 - 7.70 10(3)/mcL 05/26/2025 12:29 PM CDT [facility] ABSOLUTE LYMPHOCYTES 2.13 1.30 - 3.20 10(3)/mcL 05/26/2025 12:[address] [facility] ABSOLUTE MONOCYTES 0.34 0.20 - 1.00 10(3)/mcL 05/26/2025 12:29 PM CDT [facility] ABSOLUTE EOSINOPHIL 0.04 0.00 - 0.40 10(3)/mcL 05/26/2025 12:[address] [facility] ABSOLUTE BASOPHILS 0.04 0.00 - 0.10 10(3)/mcL 05/26/2025 12:[address] [facility] ABSOLUTE IMMATURE GRANULOCYTE 0.02 0.00 - 0.03 10 (3) mcL. 05/26/2025 12:[address] [facility] NRBC PER 100 WBC 0 05/26/20 12:[address] [facility] Blood Venipuncture / Unknown 05/26/2025 12:04 PM CDT 05/26/2025 12:22 PM CDT us Mica Taylor FILBERT GROWER, BEAD INSPECTOR HEMATOLOGY ORDERABL ES Final Result Performing Organization Address City/[facility]/ZIP Co de Phone Number [facility] [address] [place] [address] * VITAMIN B12 (05/26/2025 12:04 PM CDT) VITAMIN B12 320 213 - 816 pg/mL 05/26/2025 1:51 PM CDT [facility] Blood Venipuncture / Unknown 05/26/2025 12:04 PM CDT 05/26/2025 12:23 PM CDT us Mica Taylor APRN, BEAD INSPECTOR CHEMISTRY ORDERABLE S Final Result Performing Organization Address [facility] Co de Phone Number [facility] [address] [place] [address] * (ABNORMAL) FOLIC ACID (FOLATE) (05/26/2025 12:04 PM CDT) FOLATE 6.4(L) 7.0 - 31.4 ng/mL 05/26/2025 1:51 PM CDT [facility] IS THE PATIENT REQUIRED TO BE FASTING? No 05/26/2025 1:51 PM CDT [facility] Blood Venipuncture / Unknown 05/26/2025 12:04 PM CDT 05/26/2025 12:23 PM CDT us Mica E Andrewattei FILBERT GROWER, BEAD INSPECTOR CHEMISTRY ORDERABLE S Final Result Performing Organization Address City/[facility]/ZIP Co de Phone Number [facility] [address] [place] [address] * FERRITIN (05/26/2025 12:04 PM CDT) FERRITIN 42 5 - 204 ng/mL 05/26/2025 1:50 PM CDT [facility] Blood Venipuncture / Unknown 05/26/2025 12:04 PM CDT 05/26/2025 12:21 PM CDT us Mica Taylor APRN, CNP CHEMISTRY ORDERABLE S Final Result [facility] [address] [place] [address] * (ABNORMAL) CMP (COMPREHENSIVE METABOLIC PANEL) (05/26/2025 12:04 PM CDT) SODIUM 141 136 - 145 mmol/L 05/26/2025 1:[address] [facility] POTASSIUM 4.3 3.5 - 5.1 mmol/L 05/26/2025 1:[address] [facility] CHLORIDE 112(H) 98 - 107 mmol/L 05/26/2025 1:[address] [facility] CO2, VENOUS 19(L) 22 - 30 mmol/L 05/26/2025 1:[address] [facility] ANION GAP 14.3 <18.0 mmol/L 05/26/2025 1:[address] [facility] GLUCOSE 97 70 - 99 mg/dL 05/26/2025 1:[address] [facility] BUN 11 5 - 18 mg/dL 05/26/2025 1:[address] [facility] CREATININE, BLOOD 0.79 0.60 - 1.00 mg/dL 05/26/2025 1:[address] [facility] BUN/CREATININE RATIO 14 12 - 20 ratio 05/26/2025 1:[address] [facility] TOTAL PROTEIN 7.1 6.0 - 8.0 g/dL 05/26/2025 1:37 PM CDT [facility] ALBUMIN 4.3 3.5 - 5.0 g/dL 05/26/2025 1:37 PM [facility] A/G RATIO 1.5 1.0 - 2.2 05/26/2025 1:37 PM [facility] CALCIUM 8.8 8.7 - 10.5 mg/dL 05/26/2025 1:37 PM [facility] T BILI 0.2 0.2 - 1.2 mg/dL 05/26/2025 1:37 PM [facility] SGOT (AST) 17 <43 U/L 05/26/2025 1:37 PM [facility] SGPT (ALT) 16 <56 U/L 05/26/2025 1:37 PM [facility] ALKALINE PHOSPHATASE 35(L) 40 - 150 U/L 05/26/2025 1:37 PM [facility] IS THE PATIENT REQUIRED TO BE FASTING? No 05/26/2025 1:37 PM [facility] GFR, ESTIMATED >60 >=60 05/26/2025 1:37 PM [facility] Comment: Creatinine Clearance is the preferred criteria for selecting drug dose adjustments in renally impaired patients. The GFR is provided as additional pertinent clinical information. GFR is reported in mL/min/1.73 sq m. Calculation based on the 2020 Chronic Kidney Disease Epidemiology Collaboration (CKD-EPI) equation refit without adjustment for race. GFR, EST. >60 >=60 025 1:37 PM [facility] Comment: Creatinine Clearance is the preferred criteria for selecting drug dose adjustments in renally impaired patients. The GFR is provided as additional pertinent clinical information. GFR is reported in mL/min/1.73 sq m. Calculation based on the 2009 Chronic Kidney Disease Epidemiology Collaboration (CKD-EPI). GFR, EST. NONAFRICAN >60 >=60 05/26/2025 1:37 PM [facility] Comment: Creatinine Clearance is the preferred [...] APRN, CNP CHEMISTRY ORDERABLE S Final Result [facility] [address] [place] [address] from Last 3 Months Insurance [facility] MEDICAID [place] [employer] MEDICAID [facility] [place] Care Teams Specialty Therapist Relationship Specialty Start Date End Date Daily Grant MD [address] [place] [address] [place] [address] PCP - General Family Medicine 06/30/22 Angel Conner MD [address] [place] [phone] Consulting Physician Oncology 06/30/22 Ally Richter APRN, BEAD INSPECTOR [address] [place] [address] Nurse Practitioner Advanced Practice Nurse 07/22/24 Roosevelt Mas APRN, BEAD INSPECTOR [address] [place] [address] Nurse Practitioner Advanced Practice Nurse 08/12/24
--- OUTSIDE RECORDS SUMMARY | 2025-08-08 18:25 | XMS_ITS | Clinical Summary ---
Author Organization [facility] Address [address] [place] [address] Care Team Providers Care Web Weaver Name Role Phone Daily Grant MD Primary Care Provider [phone] Allergies No known active allergies Medications benzonatate [...] (01/01/2023): Added automatically from request for surgery [id number] Chronic diarrhea 01/01/2023 Overview (01/01/2023): Added automatically from request for surgery [id number] Gastroesophageal reflux dise ase, unspecified whether esophagitis present 01/01/2023 Overview (01/01/2023): Added automatically from request for surgery [id number] Pharyngoesophageal dysphagia 01/01/2023 Overview (01/01/2023): Added automatically from request for surgery [id number] Generalized abdominal pain 01/01/2023 Overview (01/01/2023): Added automatically from request for surgery [id number] History of melena 01/01/2023 Overview (01/01/2023): Added automatically from request for surgery [id number] Family History Medical History Relation Comments Irritable [...] Sex Assigned at Female 10/29/2024 9:38 PM ALARM MECHANIC Legal Sex Female 3:44 PM ALARM MECHANIC Gender Identity Not on file Sexual Orientation [...] COVID-19 Vaccine ( season) 2025 03/14/2021, 02/12/2021 Influenza Adult (#1) 2025 06/16/2024, 07/17/20 23 DTaP, Tdap and Td Vaccines (8 - Td or Tdap) 11/21/2031 11/21/2021, 04/27/2012, 05/13/2006, Additional history exists Hepatitis A Vaccines Completed 04/27/2012, 05/13/20 06 HPV Vaccines Completed 05/24/2015, 04/0 01/2013, 04/27/2012 Meningococcal Vaccine Completed 05/14/2017, 012 [...] on patient's age to complete this topic Insurance MEDICAID Care Teams Web Weaver Relationship Specialty Start Date End Date Daily Grant MD [address] [facility] [address] [address] PCP - General FAMILY PRACTICE 11/09/21
--- OUTSIDE RECORDS SUMMARY | 2025-08-08 18:25 | XMS_ITS | Encounter Summary ---
Author Organization [facility] Address [address] [place] [address] Phone Care Team Providers Care Maternal Child Nurse Name Role Phone Daily Grant MD Primary Care Provider + Angel Conner MD Unavailable [phone] Ally Richter OIL DISPENSER, BILLPOSTING SUPERVISOR Unavailable Roosevelt Mas OIL DISPENSER, BILLPOSTING SUPERVISOR Unavailable [phone] Encounter Details Date Type Department Care Team (Late st Contact Info) Description 08/25/2024 Behavioral Health Patient Survey [facility] [address] [place] [phone] Vangie Levy, [facility] [address] [place] [address] Social History Tobacco Use Types Packs/Day Years [...] (Latest Contact Info) Description 09/18/2025 10:30 AM MILITARY SOURCE OPERATIONS OFFICER Outpatient Clinic Visit [facility] [address] [place] [address] Vangie Levy LCSW [address] [place] [address] Discharge Disposition: Discharged to home or Selfcare [...] to change Department associated with goal: [facility] Steps to achieve [...] on filedocumented in this encounter Care Teams Maternal Child Nurse Relationship Specialty Start Date End Date Daily Grant MD [address] [place] [address] [address] PCP - General Family Medicine 06/30/22 Angel Conner MD [address] [place] [phone] Consulting Physician Oncology 06/30/22 Ally Richter APRN, BILLPOSTING SUPERVISOR [address] [place] [address] Nurse Practitioner Advanced Practice Nurse 07/22/24 Roosevelt Mas APRN, BILLPOSTING SUPERVISOR [address] [place] [address] Nurse Practitioner Advanced Practice Nurse 08/12/24 documented as of this encounter
--- OUTSIDE RECORDS SUMMARY | 2025-08-08 18:25 | XMS_ITS | Encounter Summary ---
Author Organization [facility] Address [address] [place] [address] Phone Care Team Providers Care Manager Hospice Name Role Phone Grant, Daily Chahal MD Primary Care Provider + Angel Conner MD Unavailable [phone] Ally Richter APRN, WOOL SPOTTER Unavailable Roosevelt Mas SET UP MECHANIC, WOOL SPOTTER Unavailable [phone] Encounter Details Date Type Department Care Team (Late st Contact Info) Description 08/07/2025 Telephone [facility] [address] [place] [address] Angel Conner MD [address] [place] [address] Social History Tobacco Use Types Packs/Day Years [...] encounter Miscellaneous Notes * Telephone Encounter - Gisele Bower RN - 08/07/2025 4:43 PM CST patient called in stating that she has been experiencing dizziness, shortness of breath, and pain in her lower abdomen does notknow if it is because her iron is low or if she has another ulcer Returned call to patient she reports fatigue that is similar to when her Iron is low however she has been feeling dizzy and SOB her stool is very dark/black. Advised she needs to be evaluated in the ER for Gi bleeding and anemia. Symptoms with history of ulcer and dark stools She will call our office for follow up appointment after ER visit in case of need of Iron STFEEDING PROGRAM COORDINATOR documented in this encounter Plan of Treatment Upcoming Encounters Date Type Department Care Team (Latest Contact Info) Description 09/18/2025 10:30 AM BREASTFEEDING PROGRAM COORDINATOR Outpatient Clinic Visit [facility] [address] [place] [address] Vangie Levy LCSW [address] [place] [address] Discharge Disposition: Discharged to home or Selfcare [...] change Department associated with goal: [facility] Steps to achieve goal: [...] on filedocumented in this encounter Care Teams Manager Hospice Relationship Specialty Start Date End Date Daily Grant MD [address] [place] [address] [address] PCP - General Family Medicine 06/30/22 Angel Conner MD [address] [place] [phone] Consulting Physician Oncology 06/30/22 Ally Richter APRN, WOOL SPOTTER [address] [place] [address] Nurse Practitioner Advanced Practice Nurse 07/22/24 Roosevelt Mas APRN, WOOL SPOTTER [address] [place] [address] Nurse Practitioner Advanced Practice Nurse 08/12/24 documented as of this encounter
--- OUTSIDE RECORDS SUMMARY | 2025-08-08 18:25 | XMS_ITS | Clinical Summary ---
Author Organization [facility] Address [address] [place] [address] Care Team Providers Care Yarder Name Role Phone Daily Grant MD Primary Care Provider + Allergies No known active allergies Medications omeprazole (PriLOSEC) 20 mg capsuleIndications :Treatment of Non-Bleeding Gastric Disorder 4 capsules (80 [...] tablet 3 Active busPIRone (BUSPAR) 7.5 mg tabletIndications: Generalized Anxiety Disorder Take 1 tablet (7.5 mg total) by mouth 3 (three) times a day Twice a day Active famotidine (PEPCID) 20 mg tablet Take 1 tablet (20 mg total) by mouth 2 (two) times a day Twice a day Active escitalopram (LEXAPRO) 5 mg tablet Take 1 tablet (5 mg total) by mouth daily Active levETIRAcetam (KEPPRA) 750 mg tablet Take 1 tablet (750 mg total) by mouth 2 (two) times a day 60 tablet 11 5 026 Active levETIRAcetam (KEPPRA) 750 mg tablet Take 1 tablet (750 mg total) by mouth 2 (two) times a day 60 tablet 11 5 025 Discontin ued(Reord er) Active Problems Problem Noted Date Diagnosed Date Obesity 07/02/2024 Vitamin D deficiency 01/28/2023 Chronic diarrhea 01/01/2023 Overview (05/12/2025): Added automatically from request for surgery [id number] Pharyngoesophageal dysphagia 01/01/2023 Overview (05/12/2025): Added automatically from request for surgery [id number] Iron deficiency anemia 07/28/2022 Overview (05/12/2025): Added automatically from request for surgery [id number] Seizure 05/29/2022 Moderate asthma 05/29/2022 Migraine with aura 04/08/2022 Migraine without status migrainosus, not intract able 05/31/2020 Moderate persistent asthma without complication 05/31/2020 Gastroesophageal reflux disease 05/31/2020 Overview (05/12/2025): Added automatically from request for surgery [id number] Atypical syncope 04/04/2020 Gastroesophageal reflux disease without esophagi tis 04/04/2020 GEGE (generalized anxiety disorder) 04/04/2020 Menorrhagia with irregular cycle 04/12/2019 BMI (body mass index), pedia tric, 85% to less than 95% for age 0704/27/2012 Resolved Problems Problem Noted Date Diagnosed Date Resolved Date Generalized abdominal pain 01/01/2023 0 05/12/2025 Overview (05/12/2025): Added automatically from request for surgery [id number] Encounters Date Type Department Care Team Description 07/31/2025 2:00 PM CDT Telemedicine [facility] Epilepsy [facility] 6th [place] [address] [place] [address] Feliberto Avalos MD PhD Seizure (HCC) (Primary Dx) 07/05/2025 Telephone [facility] at [address] [place] [address] Daily Grant MD 07/04/2025 Telephone [facility] at [address] [place] [address] Daily Grant MD Call Back 05/18/2025 10:50 AM CDT [facility] [address] [place] [address] TrejoMala cuellar, TEST DEVELOPMENT ENGINEER Pelvic and perineal pain (Primary Dx); Painful menstrual periods; Menorrhagia with regular cycle 05/18/2025 9:45 AM CDT Ancillary Procedure [facility] [address] [place] [address] Pelvic and perineal pain 05/12/2025 11:10 AM CDT [facility] [address] [place] [address] TrejoMala cuellar, TEST DEVELOPMENT ENGINEER Pelvic and perineal pain (Primary Dx); Painful menstrual periods; Menorrhagia with regular cycle from Last 3 Months Surgical History Surgery Date Site/Laterality Comments TONSILLECTOMY 10/05/2003 - 10/04/2004 Bilateral FLEXIBLE BRONCHOSCOPY W/ UPP ER ENDOSCOPY 04/04/2023 - 05/04/2023 Medical History Medical History Date Comments Asthma Anxiety Depression Hemiplegic migraine GERD without esophagitis Asthma Iron deficiency Seizures (HCC) POTS (postural orthostatic tachycardia syndrome) Family History Medical History Relation Name Comments [...] AM CDT Pulse 91 11/15/2024 12:56 PM MATHEMATICAL ENGINEER Temperature 36.9 C (98.4 F) 01/22/2024 12:26 PM CDT Respiratory Rate 18 01/22/2024 5:30 PM CDT Oxygen Saturation 100% 01/22/2024 6:30 PM CDT Inhaled Oxygen Concentration - - Weight 122.5 kg (270 lb) 05/18/2025 10:41 AM CDT Height 162.6 cm (5' 4) 11/15/2024 12:56 PM MATHEMATICAL ENGINEER Body Mass Index 46.35 11/15/2024 12:56 PM MATHEMATICAL ENGINEER Plan of Treatment Health Maintenance Due Date [...] Completed 01/06/2013, 04/28/2002 HPV Vaccines Completed 05/24/2015, 01/2013, 04/27/2012 Hepatitis B Screening Completed 12/10/2021 , 10/08/2001, 2000, Additional history exists Procedures Procedure Name Priority Date/Time Associated Diagnosis Comments US PELVIS COMPLETE Routine 05/18/2025 9: 39 AM CDT Pelvic and perineal pain IGP,CTNG,RFX APT HPV ALL PTH Routine 08/21/2023 2:02 PM MATHEMATICAL ENGINEER Cervical cancer screening Screen for sexually transmitted [...] free fluid seenadjacent to left ovary. us Malazion Emery Trejo [facility]A ELENA IMG US PROCEDURES Final Re sult * IGP,CtNg,rfx Apt HPV all pth (08/21/2023 2:02 PM MATHEMATICAL ENGINEER) Clinical indication Comment [facility] - 01 Comment:NEGATIVE [...] 02 Thin Prep-Cervical/ Endocervical 08/21/2023 2:02 PM MATHEMATICAL ENGINEER 08/24/2023 Narrative [facility] - 08/26/2023 10:36 AM MATHEMATICAL ENGINEER Performed at: - [address] [id number] Woolen Suiting Shrinker: Karina Bravo MD, Phone: [phone] Performed at: - [address] [id number] Woolen Suiting Shrinker: Karina Bravo MD, Phone: [phone] Specimen Comment: Source.............Cervix;Endocervix Specimen Comment: No. of containers..01 ThinPrep Vial Corry Robledo NP LAB PATHOLOGY ORDERABLE S Final Result [facility] - 01 LAB TANG 02 from Last 3 Months or Most Recently Relevant to Health Maintenance Insurance [facility] PLAN [facility] CHOICE PLUS [facility] CHOICE PLUS [employer] [facility] CHOICE PLUS Advance Directives For more information, please contact: [phone] * Full Code (Latest Code Status on File) Date Activated Date Inactivated Comments 05/29/2022 6:16 PM 05/30/2022 10:32 PM * Full Code Date Activated Date Inactivated Comments 04/02/2020 1:17 AM 04/05/2020 8:30 PM Care Teams Yarder Relationship Specialty Start Date End Date Daily Grant MD PCP - General Family Medicine 07/08/24
--- OUTSIDE RECORDS SUMMARY | 2025-08-08 18:25 | XMS_ITS | Encounter Summary ---
Author Organization [facility] Address [address] [place] [address] Phone Care Team Providers Care Melt Supervisor Name Role Phone Daily Grant MD Primary Care Provider + Angel Conner MD Unavailable [phone] Ally Richter APRN, FLARER Unavailable Roosevelt Mas SOCIAL CONTACT WORKER, FLARER Unavailable [phone] Reason for Visit * Reason Comments Medication Refill Encounter Details Date Type Department Care Team (Late st Contact Info) Description 02/20/2025 Refill [facility] - G[facility]enter[facility] [address] [place] [address] Ally Richter, KATE, FLARER [address] [place] [address] Medication Refill Social History Tobacco Use Types [...] PM CDT Medication [facility] and [facility] medication standing order for pediatric and adult patients. documented in this encounter Plan of Treatment Upcoming Encounters Date Type Department Care Team (Latest Contact Info) Description 09/18/2025 10:30 AM SECURITY INCIDENT HANDLER Outpatient Clinic Visit [facility] [address] [place] [address] Vangie Levy LCSW [address] [place] [address] Discharge Disposition: Discharged to home or Selfcare [...] Ready to change Department associated with goal: [facility] Steps to achieve [...] type documented in this encounter Care Teams Melt Supervisor Relationship Specialty Start Date End Date Daily Grant MD [address] [place] [address] [address] PCP - General Family Medicine 06/30/22 Angel Conner MD [address] [place] [phone] Consulting Physician Oncology 06/30/22 Ally Richter APRN, FLARER [address] [place] [address] Nurse Practitioner Advanced Practice Nurse 07/22/24 Roosevelt Mas APRN, FLARER [address] [place] [address] Nurse Practitioner Advanced Practice Nurse 08/12/24 documented as of this encounter
--- OUTSIDE RECORDS SUMMARY | 2025-08-08 18:25 | XMS_ITS | Encounter Summary ---
Author Organization [facility] Address [address] [place] [address] Phone Care Team Providers Care Applications Architect Name Role Phone Daily Grant MD Primary Care Provider + Angel Conner MD Unavailable [phone] Ally Richter BREAKER TENDER, PROCUREMENT INSPECTOR Unavailable Roosevelt Mas BREAKER TENDER, PROCUREMENT INSPECTOR Unavailable [phone] Encounter Details Date Type Department Care Team (Late st Contact Info) Description 04/20/2025 Behavioral Health [facility] Survey [facility] [address] [place] [id number] Vangie Levy, [facility] [address] [place] [address] Social History Tobacco Use Types Packs/Day Years [...] (Latest Contact Info) Description 09/18/2025 10:30 AM BOAT WASHER Outpatient Clinic Visit [facility] [address] [place] [address] Vangie Levy LCSW [address] [place] [address] Discharge Disposition: Discharged to home or Selfcare [...] change Department associated with goal: [facility] Steps to achieve [...] on filedocumented in this encounter Care Teams Applications Architect Relationship Specialty Start Date End Date Daily Grant MD [address] [place] [address] [address] PCP - General Family Medicine 06/30/22 Angel Conner MD [address] [place] [phone] Consulting Physician Oncology 06/30/22 Ally Richter APRN, PROCUREMENT INSPECTOR [address] [place] [address] Nurse Practitioner Advanced Practice Nurse 07/22/24 Roosevelt Mas APRN, PROCUREMENT INSPECTOR [address] [place] [address] Nurse Practitioner Advanced Practice Nurse 08/12/24 documented as of this encounter
--- OUTSIDE RECORDS SUMMARY | 2025-08-08 18:25 | XMS_ITS | Encounter Summary ---
Author Organization [facility] Address [address] [place] [address] Phone Care Team Providers Care Machine I Trimmer Name Role Phone Daily Grant MD Primary Care Provider + Angel Conner MD Unavailable [phone] Ally Richter APRN, GROUP WORK PROGRAM AIDE Unavailable Roosevelt Mas GAME TESTER, GROUP WORK PROGRAM AIDE Unavailable [phone] Reason for Visit * Reason Comments Medication Refill Encounter Details Date Type Department Care Team (Late st Contact Info) Description 02/01/2023 Refill [facility] [address] [address] Noemi Collier, PAC Medication Refill [...] (Latest Contact Info) Description 09/18/2025 10:30 AM HEARINGS REPORTER Outpatient Clinic Visit [facility] [address] [place] [address] Vangie Levy, DOCK ASSOCIATE [address] [place] [address] Discharge Disposition: Discharged to home or Selfcare documented as of this encounter Visit Diagnoses Diagnosis Vitamin D deficiency Unspecified vitamin D deficiency documented in this encounter Care Teams Machine I Trimmer Relationship Specialty Start Date End Date Daily Grant MD [address] [place] [address] [address] PCP - General Family Medicine 06/30/22 Angel Conner MD [address] [place] [phone] Consulting Physician Oncology 06/30/22 Ally Richter APRN, PACHECO [address] [place] [address] Nurse Practitioner Advanced Practice Nurse 07/22/24 Roosevelt Mas APRN, GROUP WORK PROGRAM AIDE [address] [place] [address] Nurse Practitioner Advanced Practice Nurse 08/12/24 documented as of this encounter
--- NOTE | 2025-08-08 20:55 | PC.NURSE ---
This RN was notified by pts visitor that pt passed out in the waiting room. pt visitor told this RN she stood up to relieve the pain when she went on her knees and hit her head of the chair. associate publisher notified. pt wheeled back to room 6 after the incident
--- NOTE | 2025-08-08 21:43 | ED.ABDPAIN ---
HPI - Abdominal Pain General Chief Complaint: Arrhythmia/Palpitations Stated Complaint: palpitations Time Seen by Provider: 08/08/25 21:11 History of Present Illness HPI narrative: Patient is a 24-year-old female who presents to the ER with multiple medical complaints. She reports she has had dark stool since , some bright red stools on Thursday, generalized abdominal pain, palpitation, dizziness, shortness of breath, emesis, headache, T-max 100.0?. Patient also reports when she was in the waiting room she passed out and hit her forehead. She endorses a history of seizures, POTS, asthma, anemia, GERD, and anxiety. Patient denies any urinary symptoms, acute back pain, or numbness/tingling to her extremities. Related Data Home Medications ?Medication ?Instructions ?Recorded ?Confirmed ?Last Taken ?Type fluoxetine 40 mg capsule 40 mg PO BID 11/08/21 08/15/24 Unknown History omeprazole 40 mg capsule,delayed 40 mg PO DAILY 11/08/21 03/29/22 Unknown History release albuterol sulfate 90 mcg/actuation 2 puff inhalation Q4-6H PRN 03/29/22 08/15/24 Unknown History aerosol inhaler Shortness Of Breath Or Wheezing budesonide-formoterol HFA 80 1 inh inhalation DAILY 03/29/22 08/15/24 Unknown History mcg-4.5 mcg/actuation aerosol inhaler (Symbicort) fluticasone propionate 50 1 ea intranasal DAILY 03/29/22 03/29/22 Unknown History mcg/actuation nasal spray,suspension hydroxyzine HCl 25 mg tablet 1 tablet PO DAILY 03/29/22 03/29/22 Unknown History topiramate 25 mg tablet 1 tablet PO BID 03/29/22 03/29/22 Unknown History levetiracetam 500 mg tablet mg PO 02/21/23 Unknown History famotidine 20 mg tablet 20 mg PO BID 08/15/24 08/15/24 Unknown History famotidine 20 mg tablet mg 08/15/24 Unknown History buspirone 7.5 mg tablet mg 06/16/25 Unknown History dicyclomine 20 mg tablet mg 06/16/25 Unknown History folic acid 1 mg tablet 06/16/25 Unknown History levetiracetam 750 mg tablet mg PO 06/16/25 Unknown History sodium chloride 1,000 mg soluble mg 06/16/25 Unknown History tablet Allergies Allergy/AdvReac Type Severity Reaction Status Date / Time No Known Allergies Allergy Verified 08/08/25 18:26 Review of Systems Review of Systems: All systems reviewed & are unremarkable except as noted in HPI and below PMFSH Past Medical History Medical History Absence seizure Migraines No pertinent past medical history Surgical History Surgical History No pertinent past surgical history Family History Family History Mother No pertinent past medical history Social History Social History Substance use: never 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 HEAD: Normocephalic, atraumatic. NECK: Supple. No adenopathy, no masses. RESPIRATORY: Airway patent, respirations nonlabored. Clear to auscultation bilaterally, no rales, rhonchi, wheezing. CARDIOVASCULAR: Regular rate and rhythm without murmurs, rubs, or gallops. Peripheral pulses 2+ and equal bilaterally. ABDOMINAL: Soft, nontender, nondistended, no hepatosplenomegaly. Normoactive BS. MUSCULOSKELETAL: Moves all extremities. Strength/ROM intact without gross deformities. SKIN: Warm, dry, normal color. No rashes. NEURO: A&O X3. Speech clear. Cranial nerves II-XII intact. No ataxic movements. PSYCHIATRIC: Appropriate mood and affect. Normal interaction. : Hemoccult negative, one small palpable internal hemorrhoid in the 6 o'clock position Course Vital Signs Vital signs: Vital Signs Temperature 36.8 C 08/08/25 18:24 Pulse Rate 80 08/08/25 18:24 Respiratory Rate 18 08/08/25 18:24 Blood Pressure 131/90 08/08/25 18:24 Pulse Oximetry 99 08/08/25 18:24 Oxygen Delivery Room Air 08/08/25 18:24 Temperature 36.4 C L 08/09/25 00:07 Pulse Rate 88 08/09/25 00:07 Respiratory Rate 11 L 08/09/25 00:07 Blood Pressure 129/79 08/09/25 00:07 Pulse Oximetry 99 08/09/25 00:07 Oxygen Delivery Room Air 08/09/25 00:07 MDM - Abdominal Pain MDM Narrative Medical decision making narrative: Patient is a 24-year-old female who presents to the ER with multiple medical complaints. She reports she has had dark stool since , some bright red stools on Thursday, generalized abdominal pain, palpitation, dizziness, shortness of breath, emesis, headache, T-max 100.0?. Patient also reports when she was in the waiting room she passed out and hit her forehead. She endorses a history of seizures, POTS, asthma, anemia, GERD, and anxiety. Patient denies any urinary symptoms, acute back pain, or numbness/tingling to her extremities. Labs Ordered: CBC, CMP, D-dimer, UA, UDS, PTT, INR, lipase Imaging Ordered: Chest x-ray, CTA chest PE abdomen pelvis Medications Ordered: GI cocktail, Protonix IV, 1 L normal saline IV bolus, Pepcid IV Results: Patient's CTA indicates the thoracic aorta is nondilated. There is no aneurysm or dissection. The pulmonary arterial tree is well opacified with contrast. No pulmonary emboli are identified. The heart is not enlarged. No pericardial effusion is seen. No mediastinal or axillary lymphadenopathy or masses identified. Lungs are well inflated. There is mild respiratory motion artifact. No acute focal infiltrate or consolidation is seen. Questionable slight central bronchial wall thickening could represent mild bronchitis. No pneumothorax or pleural effusion. Skeletal structures are unremarkable. Patient's CT abdomen pelvis indicates he appendix is normal. Bowel loops are nondilated. No acute inflammatory changes are seen involving the bowel. The liver, gallbladder, pancreas, spleen, adrenal glands, and kidneys are unremarkable. 1.7 cm rim enhancing cyst or follicle in the right ovary. The uterus and left ovary are unremarkable. No free fluid is seen in the pelvis. The urinary bladder is mostly decompressed but within normal limits. 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 Skeletal structures are otherwise unremarkable. Diagnosis: GERD, UTI, R ovarian cyst Patient Education/Shared MDM: Results of lab work and imaging shared with patient. She endorses mild improvement of symptoms following medication administration. Patient will be ambulated around the emergency department to ensure she is stable on her feet. A Hemoccult was performed on patient and it was negative. Patient strongly advised to maintain hydration status upon discharge and follow-up with her PCP and OBGYN as soon as possible. She will be discharged home with a prescription for Bactrim. Pt already has a prescription for Pepcid and Prilosec at home. Pt will be given a dose of Toradol here in the ER before discharge. Strict return precautions provided. Patient verbalized understanding and is in agreement with plan. Vital signs stable at time of discharge. All questions answered. Differential Diagnosis Differential diagnosis: Likely abdominal pain, acute appendicitis, calculus of kidney, constipation, diverticulitis, gastroenteritis, pancreatitis and small bowel obstruction Lab Data Attestation: I reviewed the patient's lab results. 08/08/25 22:16 08/08/25 22:16 Labs: Lab Results 08/08/25 08/08/25 08/08/25 Range/Units 22:16 22:27 22:36 WBC 7.3 (4.5-10.0) K/mm3 RBC 4.70 (4.2-5.4) M/mm3 Hgb 12.9 D (12.0-15.0) g/dL Hct 38.6 (37.0-47.0) % MCV 82.1 (80-100) fl MCH 27.4 (26-34) pg MCHC 33.4 (32-36) g/dl RDW 13.2 (11.5-14.5) % Plt Count 272 (150-375) k/mm3 MPV 9.8 (7.4-10.4) fl Immature Gran % (Auto) 0.3 (0-0.5) % Neut % (Auto) 50.9 (45.5-73.1) % Lymph % (Auto) 39.1 (18.3-44.2) % [place] % (Auto) 8.3 (2.6-8.5) % Eos % (Auto) 0.7 (0-4.4) % Baso % (Auto) 0.7 (0.2-1.2) % Lymph # (Auto) 2.84 (0.9-3.2) K/mm3 [place] # (Auto) 0.6 (0.1-0.6) K/mm3 Eos # (Auto) 0.1 (0-0.3) K/mm3 Baso # (Auto) 0.1 (0.0-0.1) K/mm3 Abs Immat Gran (auto) 0.02 (0.00-0.031) K/mm3 Absolute Neuts (auto) 3.7 (1.3-6.7) K/mm3 Absolute Nucleated RBC 0.000 (0.0-0.012) K/mm3 Nucleated RBC % 0.0 (0.0-0.2) % PT 13.4 (11.1-14.7) Seconds INR 1.0 APTT 33.0 (22.3-36.8) Seconds D-Dimer 0.88 H (<0.48) ug/mL Sodium 133 L (137-145) mmol/L Potassium 3.8 (3.4-5.0) mmol/L Chloride 105 (98-107) mmol/L Carbon Dioxide 22 (22-30) mmol/L Anion Gap 6 (4-12) mmol/L BUN 14 (7-17) mg/dL Creatinine 0.96 (0.7-1.0) mg/dL Estim Creat Clear Calc 98 ml/min Estimated GFR > 60 (59 - ) Glucose 111 H (65-110) mg/dL Lactic Acid 0.6 L (0.7-2.0) mmol/L Calcium 9.2 (8.4-10.2) mg/dL Total Bilirubin 0.3 (0.2-1.3) mg/dL AST 24 (14-36) U/L ALT 20 (6-35) U/L Alkaline Phosphatase 42 (38-126) U/L Troponin I < 0.012 (0.000-0.034) ng/mL Total Protein 7.1 (6.3-8.2) g/dL Albumin 4.2 (3.5-5.1) g/dL Lipase 74 (23-300) U/L Urine Color Yellow (Yellow) Urine Appearance Cloudy H (Clear) Urine pH 6.5 (5.0-9.0) Ur Specific [place] 1.023 (1.001-1.035) Urine Protein Negative (Negative) mg/dL Urine Glucose (UA) Negative (Negative) mg/dL Urine Ketones Trace H (Negative) mg/dL Ur Blood (Man) Negative (Negative) Urine Nitrate Negative (Negative) Urine Bilirubin Negative (Negative) Urine Urobilinogen 1.0 (<2.0) mg/dL Add Ur Microanalysis Reviewed Leukocyte Esterase Rfl 2+ H (Negative) BRAULIO/UL Urine RBC 6-10 H (0-2) /hpf Urine WBC 21-50 H (0-3) /hpf Ur Squamous Epith Cells Few (Few) /hpf Urine Bacteria 1+ H /hpf Urine Casts 0-2 POC Urine HCG, Qual Negative (Negative) Urine Opiates Screen Negative (Negative) Urine Methadone Screen Negative (Negative) Ur Barbiturates Screen Negative (Negative) Ur Phencyclidine Scrn Negative (Negative) Ur Amphetamine Screen Negative (Negative) U Benzodiazepines Scrn Negative (Negative) Urine Cocaine Screen Negative (Negative) U Cannabinoids Screen Negative (Negative) Imaging Data Attestation: I personally reviewed and interpreted this imaging study as follows: My impression: Patient's CTA indicates the thoracic aorta is nondilated. There is no aneurysm or dissection. The pulmonary arterial tree is well opacified with contrast. No pulmonary emboli are identified. The heart is not enlarged. No pericardial effusion is seen. No mediastinal or axillary lymphadenopathy or masses identified. Lungs are well inflated. There is mild respiratory motion artifact. No acute focal infiltrate or consolidation is seen. Questionable slight central bronchial wall thickening could represent mild bronchitis. No pneumothorax or pleural effusion. Skeletal structures are unremarkable. Patient's CT abdomen pelvis indicates he appendix is normal. Bowel loops are nondilated. No acute inflammatory changes are seen involving the bowel. The liver, gallbladder, pancreas, spleen, adrenal glands, and kidneys are unremarkable. 1.7 cm rim enhancing cyst or follicle in the right ovary. The uterus and left ovary are unremarkable. No free fluid is seen in the pelvis. The urinary bladder is mostly decompressed but within normal limits. 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 Skeletal structures are otherwise unremarkable. Radiologist's impression: ITS Impressions Chest X-Ray 08/08/25 21:51 IMPRESSION: 1: NO ACUTE CARDIOPULMONARY DISEASE. Discharge Plan Discharge Clinical Impression: UTI (urinary tract infection), Chest pain due to GERD, Cyst of right ovary, Fall, Episode of syncope, Postural orthostatic tachycardia syndrome [POTS] Patient Disposition: Home Condition: Stable Instructions: Antibiotic Form, Ovarian Cyst (ED), Gastritis (ED), Urinary Tract Infection in Women (ED), Diet for Stomach Ulcers and Gastritis (ED) Additional Instructions: Please return to the ER with any worsening symptoms. Follow-up with primary care provider and your OBGYN as soon as possible. Take all medications as prescribed, including regularly scheduled medications. You may take Tylenol as needed for pain control. Continue to take your Pepcid and Prilosec for gastric reflux symptoms. Please complete your full dose of antibiotics. Remember to drink lots of water and change positions slowly. Patient Language: Argentine Prescriptions: No Action albuterol sulfate 90 mcg/actuation HFA aerosol inhaler 2 puff INHALATION Q4-6H PRN (Reason: Shortness Of Breath Or Wheezing) fluticasone propionate 50 mcg/actuation spray,suspension 1 ea INTRANASAL DAILY hydroxyzine HCl 25 mg tablet 1 tablet PO DAILY dextromethorphan-guaifenesin [Mucinex DM] 60-1,200 mg tablet extended release 12 hr 1 tablet PO Q12H Qty: 20 0RF topiramate 25 mg tablet 1 tablet PO BID budesonide-formoterol [Symbicort] 80-4.5 mcg/actuation HFA aerosol inhaler 1 inh INHALATION DAILY levetiracetam 500 mg tablet PO famotidine 20 mg tablet famotidine 20 mg tablet 20 mg PO BID albuterol sulfate 90 mcg/actuation HFA aerosol inhaler 2 inh inhalation QID PRN (Reason: shortness of breath or wheezing) Qty: 8.5 0RF omeprazole 40 mg capsule,delayed release(DR/EC) 40 mg PO DAILY fluoxetine 40 mg capsule 40 mg PO BID dicyclomine 20 mg tablet buspirone 7.5 mg tablet folic acid 1 mg tablet levetiracetam 750 mg tablet PO sodium chloride 1,000 mg tablet,soluble Follow-up/Referrals: PHYSICIAN NOT ON STAFF,NONSTAFF [Non-Staff] Time of Disposition: 01:39
[2025-08-08] MEDS: FAMOTIDINE 20 MG/2 ML VIAL IV PUSH (22:16)
[2025-08-08] MEDS: PANTOPRAZOLE SODIUM IV 40 MG VIAL IV PUSH (22:16)
[2025-08-08] MEDS: SODIUM CHLORIDE 0.9% IV 1,000 ML 999 ML IV CONT (22:16)
[2025-08-08 22:21] LABS: Hematocrit 38.6 % (37.0-47.0); Hemoglobin 12.9 g/dL (12.0-15.0); Immature Granulocyte Percent A 0.3 % (0-0.5); Lymphocytes Absolute Auto 2.84 K/mm3 (0.9-3.2); Mean Corpuscular HGB Conc 33.4 g/dl (32-36); Mean Corpuscular Hemoglobin 27.4 pg (26-34); Mean Corpuscular Volume 82.1 fl (80-100); Nucleated Red Blood Cells Absolute Auto 0.000 K/mm3 (0.0-0.012); Nucleated Red Blood Cells Perc 0.0 % (0.0-0.2); Platelet Count Result 272 k/mm3 (150-375); Red Blood Count 4.70 M/mm3 (4.2-5.4); White Blood Count 7.3 K/mm3 (4.5-10.0)
[2025-08-08 22:32] LABS: INR 1.0; Prothrombin Time 13.4 Seconds (11.1-14.7)
[2025-08-08 22:33] LABS: Partial Thromboplastin Time 33.0 Seconds (22.3-36.8)
[2025-08-08 22:36] LABS: Alanine Aminotransferase 20 U/L (6-35); Albumin Level 4.2 g/dL (3.5-5.1); Alkaline Phosphatase 42 U/L (38-126); Anion Gap 6 mmol/L (4-12); Aspartate Amino Transferase 24 U/L (14-36); Bilirubin,Total 0.3 mg/dL (0.2-1.3); Blood Urea Nitrogen 14 mg/dL (7-17); Calcium 9.2 mg/dL (8.4-10.2); Carbon Dioxide 22 mmol/L (22-30); Chloride 105 mmol/L (98-107); Estimated CRCL calculation 98 ml/min; Estimated Glomerular Filt Rate > 60; Glucose 111 mg/dL (65-110); Lipase 74 U/L (23-300); Potassium 3.8 mmol/L (3.4-5.0); Sodium 133 mmol/L (137-145); Total Protein 7.1 g/dL (6.3-8.2)
[2025-08-08 22:38] LABS: BEDSIDEPREGUCG Negative (Negative)
[2025-08-08 22:47] LABS: Troponin I < 0.012 ng/mL (0.000-0.034)
[2025-08-08 22:50] LABS: Add Urine Microscopic? YES; Appearance Urine Cloudy (Clear); Glucose Urine UA Negative (Negative); Leukocyte Esterase Ur 2+ LEU/UL (Negative); Need Manual Microscopic Reviewed; Nitrate Urine Negative (Negative); Non Pathogenic Casts 0-2; Specific Grav Ur 1.023 (1.001-1.035)
--- NOTE | 2025-08-08 23:26 | PC.NURSE ---
Pt taken to CT on stretcher
[2025-08-08 23:29] LABS: Cannabinoid Screen Urine Negative (Negative)
[2025-08-09 00:07] VITALS: BP 129/79; PULSE 88; RESP 11; TEMP 36.4; O2SAT 99
[2025-08-09] MEDS: SULFAMETHOXAZOLE/TRIMETHOPRIM 800/160 MG DS TABLET 1 TAB PO (01:14)
[2025-08-09] MEDS: BELLADONNA ALK/PHENOB ELIX 10 ML, MAG HYDROX/ALUMINUM HYD/SIMETH 30 ML, LIDOCAINE 2% VI... PO (01:14)
--- NOTE | 2025-08-09 01:19 | PC.NURSE ---
Pt ambulatory to bathroom with steady gait.
[2025-08-09 01:58] VITALS: BP 120/79; BP 124/89
[2025-08-09 01:59] VITALS: BP 129/78
[2025-08-09] MEDS: KETOROLAC 15 MG/ML VIAL (*BKC) IV PUSH (02:01)
== END 2025-08-09 02:00 | disposition home or self-care (01) ==
PROVIDERS: Student in an Organized Health Care Education/Training Program; Emergency Provider Registered Nurse
DX: N39.0 Urinary tract infection, site not specified (principal); K21.9 Gastro-esophageal reflux disease without esophagitis; R55 Syncope and collapse; N83.201 Unspecified ovarian cyst, right side; G90.A Postural orthostatic tachycardia syndrome [POTS]; G40.A09 Absence epileptic syndrome, not intractable, without status epilepticus; J45.909 Unspecified asthma, uncomplicated; F41.9 Anxiety disorder, unspecified; Z86.2 Personal history of diseases of the blood and blood-forming organs and certain disorders involving the immune mechanism; R94.31 Abnormal electrocardiogram [ECG] [EKG]; R00.0 Tachycardia, unspecified; Z79.899 Other long term (current) drug therapy
CPT/HCPCS: 36415; 70450; 71046; 71275; 74177; 80053; 80307; 81001; 81025; 83605; 83690; 84484; 85025; 85380; 85610; 85730; 87086; 93005; 96374; 96375; 99284; A9270; J1885; J2470; J7030; Q9967